=== PATIENT | male | born 1995 ===

== ENCOUNTER 2018-07-04 00:21 | Inpatient (IN) | payer BC ==
[2018-07-04 00:22] VITALS: BMI 24.3
--- NOTE | 2018-07-04 01:11 | ED PDOC ---
Arrival/HPI - General Chief Complaint: High Blood Sugar Time Seen by Provider: 07/04/18 00:37 Historian: Patient - Critical Care Critical Care Minutes: 30 minutes - History of Present Illness Narrative History of Present Illness (Text): 07/04/18 01:05 23 year old male, with a past medical history of diabetes (recently diagnosed 3 weeks prior in [place]), who presents to the emergency department complaining of DKA. Patient reports he was started on metformin, which he sates he stopped using. He reports he was not feeling well earlier today and went to satellite emergency room in [place], where he was diagnosed with DKA and started on Iv insulin drip. Patient requested to be transferred to [facility]. I spoke with the ER doctor, Dr. Lutz, who arranged for the transfer. Patient states he is currently feeling better. Time/Duration: 24 hours Symptom Onset: Gradual Symptom Course: Unchanged Activities at Onset: Light Context: Home Past Medical History - Provider Review Nursing Documentation Reviewed: Yes - Cardiac Hx Cardiac Disorders: No - Pulmonary Hx Respiratory Disorders: No - Neurological Hx Neurological Disorder: No - HEENT Hx HEENT Disorder: No - Renal Hx Renal Disorder: No - Endocrine/Metabolic Hx Endocrine Disorders: Yes Hx Diabetes Mellitus Type 2: Yes (Dx 05/2018) - Hematological/Oncological Hx Blood Disorders: No - Integumentary Hx Dermatological Disorder: No - Musculoskeletal/Rheumatological Hx Musculoskeletal Disorders: No - Gastrointestinal Hx Gastrointestinal Disorders: No - Genitourinary/Gynecological Hx Genitourinary Disorders: No - Psychiatric Hx Psychophysiologic Disorder: No Hx Anxiety: No Hx Substance Use: No - Anesthesia Hx Anesthesia: No Family/Social History - Physician Review Nursing Documentation Reviewed: Yes Family/Social History: Unknown Family HX Smoking Status: Never Smoked Hx Alcohol Use: No Hx Substance Use: No Allergies/Home Meds Allergies/Adverse Reactions: Allergies No Known Allergies Allergy (Unverified 07/04/18 00:40) Review of Systems - Physician Review All systems were reviewed & negative as marked: Yes - Review of Systems Respiratory: absent: SOB Cardiovascular: absent: Chest Pain Neurological: absent: Headache Physical Exam Vital Signs Reviewed: Yes Appearance: Positive for: Well-Appearing, Non-Toxic, Comfortable Pain Distress: None Mental Status: Positive for: Alert and Oriented X 3 - Systems Exam Head: Present: Atraumatic, Normocephalic Pupils: Present: PERRL Extroacular Muscles: Present: EOMI Conjunctiva: Present: Normal Mouth: Present: Moist Mucous Membranes Neck: Present: Normal Range of Motion Respiratory/Chest: Present: Clear to Auscultation, Good Air Exchange. No: Respiratory Distress, Accessory Muscle Use Cardiovascular: Present: Regular Rate and Rhythm, Normal S1, S2. No: Murmurs Abdomen: No: Tenderness, Distention, Peritoneal Signs Back: Present: Normal Inspection Upper Extremity: Present: Normal Inspection. No: Cyanosis, Edema Lower Extremity: Present: Normal Inspection. No: Edema Neurological: Present: GCS=15, CN II-XII Intact, Speech Normal Skin: Present: Warm, Dry, Normal Color. No: Rashes Psychiatric: Present: Alert, Oriented x 3, Normal Insight, Normal Concentration Medical Decision Making ED Course and Treatment: 07/04/18 01:02 Impression: 23 year old male presents to the emergency department complaining of DKA. Differential Diagnosis included but are not limited to: Plan: -- EKG -- Labs -- Chest X-ray -- Reassess and disposition Prior Visits: Notes and results from previous visits were reviewed. Progress Notes: 07/04/18 01:47 CXR-No acute process EKG-NSR@ 94 NSST changes 07/04/18 02:24 Case was discussed with /Accepts to his service ICU/Case discussed with medical pathology teacher and transportation planner - RAD Interpretation Radiology Orders: 07/04/18 00:41 CHEST PORTABLE [RAD] Stat - Scribe Statement The provider has reviewed the documentation as recorded by the Loraineibarline Suggs All medical record entries made by the Scribarline were at my direction and person ally dictated by me. I have reviewed the chart and agree that the record accurately reflects my personal performance of the history, physical exam, medical decision making, and the department course for this patient. I have also personally directed, reviewed, and agree with the discharge instructions and disposition. Disposition/Present on Arrival - Present on Arrival Any Indicators Present on Arrival: No History of DVT/PE: No History of Uncontrolled Diabetes: No Urinary Catheter: No History of Decub. Ulcer: No History Surgical Site Infection Following: None - Disposition Have Diagnosis and Disposition been Completed?: Yes Diagnosis: DKA (diabetic ketoacidosis) Disposition: HOSPITALIZED Disposition Time: 02:24 Patient Plan: Admission Condition: STABLE
[2018-07-04 01:17] LABS: ALB/GLOB RATIO 1.3 (1.1-1.8); ALBUMIN 4.6 g/dL (3.0-4.8); ALT/SGPT 20 U/L (7-56); AST/SGOT 50 U/L (17-59); BLOOD UREA NITROGEN 13 mg/dL (7-21); CALCIUM 9.2 mg/dL (8.4-10.5); GFR NON-AFRICAN AMERICAN > 60
[2018-07-04 01:34] LABS: HEMOGLOBIN 13.8 g/dL (14.0-18.0); MEAN CELL VOLUME 85.4 fl (80.0-105.0); MEAN CORPUSCULAR HEMOGLOBIN 29.3 pg (25.0-35.0); MEAN CORPUSCULAR HGB CONC 34.3 g/dl (31.0-37.0); RBC 4.71 10^6/uL (3.5-6.1); RED CELL DISTRIBUTION WIDTH 13.4 % (11.5-14.5); WHITE BLOOD COUNT 7.9 10^3/uL (4.5-11.0)
[2018-07-04 02:04] LABS: VENOUS BLOOD GAS BASE EXCESS -7.9 mmol/L (0.0-2.0); VENOUS BLOOD GAS PO2 43 mm/Hg (30-55); VENOUS BLOOD PH 7.26 (7.32-7.43)
[2018-07-04] MEDS ORDERED: Insulin Regular 100 UNITS in Sodium Chloride 0.9% 99 ML IV PRN ×2 (02:22→02:28)
[2018-07-04] MEDS ORDERED: Dextrose 5%/0.45% NS 1,000 ML IV SCH ×2 (02:30→04:00)
--- NOTE | 2018-07-04 03:28 | CP.PCM.HP ---
History of Present Illness - History of Present Illness History of Present Illness: HISTORY & PHYSICAL NOTE FOR DR. MEENA Marc PGY1 23 y/o M with PMH DM2, HLD presents to [facility]ED after being sent from [facility] for DKA. Pt reports he went to [facility] satellite ED after he wasn't feeling well at home, had noticed polyuria and checked his blood glucose level which was in the 600s range. Pt reports he generally doesn't check his sugar, but used his fathers lancet/test strips to test sugar as he wasn't feeling well. At [facility] ED, he was started on Insulin drip and subsequently transferred to [facility] ED for admission. Upon interview, pt reports he has had polyuria, polydipsia and noted dry mouth recently. He otherwise reports that he "feels completely fine." He denies any recent infections, illnesses, trauma, intoxication. He is denying the rest of the ROS. PMH: DM2, HLD All: NKDA PSH: Denies SH: denies tobacco, ETOH, illicit drug use FH: Mother: alive healthy. Father: DM1, HTN, HLD Hosp: [facility] ED 06/04/18, transferred to [facility] for admission Meds: Prescribed metformin 1000mg bid(noncompliant) PMD: None Present on Admission - Present on Admission Any Indicators Present on Admission: No Review of Systems - Review of Systems Review of Systems: per HPI Past Patient History - Past Social History Smoking Status: Never Smoked - CARDIAC Hx Cardiac Disorders: No - PULMONARY Hx Respiratory Disorders: No - NEUROLOGICAL Hx Neurological Disorder: No - HEENT Hx HEENT Problems: No - RENAL Hx Chronic Kidney Disease: No - ENDOCRINE/METABOLIC Hx Endocrine Disorders: Yes Hx Diabetes Mellitus Type 2: Yes (Dx 05/2018) - HEMATOLOGICAL/ONCOLOGICAL Hx Blood Disorders: No - INTEGUMENTARY Hx Dermatological Problems: No - MUSCULOSKELETAL/RHEUMATOLOGICAL Hx Musculoskeletal Disorders: No - GASTROINTESTINAL Hx Gastrointestinal Disorders: No - GENITOURINARY/GYNECOLOGICAL Hx Genitourinary Disorders: No - PSYCHIATRIC Hx Psychophysiologic Disorder: No Hx Anxiety: No Hx Substance Use: No - SURGICAL HISTORY Hx Surgeries: No - ANESTHESIA Hx Anesthesia: No Meds Allergies/Adverse Reactions: Allergies Allergy/AdvReac Type Severity Reaction Status Date / Time No Known Allergies Allergy Unverified 07/04/18 00:40 Physical Exam - Constitutional Appears: Well, Non-toxic, No Acute Distress - Head Exam Head Exam: NORMAL INSPECTION, NORMOCEPHALIC - Eye Exam Eye Exam: EOMI, Normal appearance - ENT Exam ENT Exam: Mucous Membranes Dry - Neck Exam Neck exam: Positive for: Normal Inspection - Respiratory Exam Respiratory Exam: Clear to Auscultation Bilateral, NORMAL BREATHING PATTERN - Cardiovascular Exam Cardiovascular Exam: REGULAR RHYTHM, +S1, +S2 - GI/Abdominal Exam GI & Abdominal Exam: Normal Bowel Sounds, Soft - Extremities Exam Extremities exam: Positive for: normal inspection. Negative for: calf tenderness - Back Exam Back exam: NORMAL INSPECTION - Neurological Exam Neurological exam: Alert, Oriented x3 - Psychiatric Exam Psychiatric exam: Normal Affect, Normal Mood - Skin Skin Exam: Dry, Intact, Warm Results - Vital Signs Recent Vital Signs: Last Vital Signs Temp 97.9 F 07/04/18 01:30 Pulse 90 07/04/18 02:55 Resp 16 07/04/18 02:55 BP 126/64 07/04/18 02:55 Pulse Ox 97 07/04/18 02:55 - Labs Result Diagrams: 07/04/18 01:05 07/04/18 01:00 Labs: Laboratory Results - last 24 hr 07/04/18 07/04/18 07/04/18 00:25 01:00 01:05 WBC 7.9 RBC 4.71 Hgb 13.8 L Hct 40.2 L MCV 85.4 MCH 29.3 MCHC 34.3 RDW 13.4 Plt Count 142 MPV 13.0 H pO2 VBG pH VBG pCO2 VBG HCO3 VBG Total CO2 VBG O2 Sat (Calc) VBG Base Excess VBG Potassium Glucose Lactate FiO2 Sodium 140 Potassium 4.1 Chloride 106 Carbon Dioxide 16 L Anion Gap 22 H BUN 13 Creatinine 0.6 L Est GFR ( Amer) > 60 Est GFR (Non-Af Amer) > 60 POC Glucose (mg/dL) 114 H Random Glucose 131 H Calcium 9.2 Total Bilirubin 0.8 AST 50 ALT 20 Alkaline Phosphatase 149 H Total Protein 8.0 Albumin 4.6 Globulin 3.5 Albumin/Globulin Ratio 1.3 Venous Blood Potassium 07/04/18 01:10 WBC RBC Hgb Hct MCV MCH MCHC RDW Plt Count MPV pO2 43 VBG pH 7.26 L VBG pCO2 42.0 VBG HCO3 18.8 L VBG Total CO2 20.1 L VBG O2 Sat (Calc) 75.3 H VBG Base Excess -7.9 L VBG Potassium 3.7 Glucose 139 H Lactate 0.9 FiO2 21.0 Sodium 137.0 Potassium Chloride 104.0 Carbon Dioxide Anion Gap BUN Creatinine Est GFR ( Amer) Est GFR (Non-Af Amer) POC Glucose (mg/dL) Random Glucose Calcium Total Bilirubin AST ALT Alkaline Phosphatase Total Protein Albumin Globulin Albumin/Globulin Ratio Venous Blood Potassium 3.7 Assessment & Plan - Assessment and Plan (Free Text) Assessment: 23 y/o M with PMH of DM2 noncompliant with medications & HLD presents to [facility] after being sent from [facility] ED for DKA. Pt noted BS in 600s before presenting to [facility]. Pt was started on insulin drip at [facility] ED and transferred for admission. Plan: DKA Likely in the setting of non-compliance to home metformin. No acute precipitants noted Pt started on insulin drip prior to arrival to [facility] Upon presentation A, HCO3 16. VBG pH: 7.26. BS 196, K: 4.1 Monitor BMP Q4H, Continue insulin drip until AG <12 Bolus IVF (D5/0.45NS) @14 ml/kg/h with 40 mEQ K supplementation Transition to SubQ insulin once AG closes, allow 2-3h overlap Endocrinology consulted, Dr. Galvez f/u TSH/FT4, lipid panel, Hgb A1c, U/A, UDS [facility] UOP Monitor in ICU Hx of HLD f/u lipid panel DVT/GI PPX: SCD/Protonix Case reviewed with attending physician, Dr. Meena Marc PGY1
[2018-07-04] MEDS ORDERED: Potassium Chloride 40 MEQ in Dextrose 5%/0.45% NS 1,000 ML IV SCH (04:00)
[2018-07-04 04:04] LABS: BASO # 0.02 K/mm3 (0.0-2.0); BASO % 0.3 % (0.0-3.0); EOS # 0.1 (0.0-0.7); EOS % 1.1 % (1.5-5.0); HEMOGLOBIN 13.2 g/dL (14.0-18.0); LYMPH # 2.6 (1.2-3.4); MEAN CELL VOLUME 85.6 fl (80.0-105.0); MEAN CORPUSCULAR HEMOGLOBIN 28.9 pg (25.0-35.0); MEAN CORPUSCULAR HGB CONC 33.8 g/dl (31.0-37.0); MEAN PLATELET VOLUME 12.6 fl (7.0-11.0); MONO # 1.1 (0.1-0.6); MONO % 14.3 % (1.0-6.0); RBC 4.57 10^6/uL (3.5-6.1); RED CELL DISTRIBUTION WIDTH 13.5 % (11.5-14.5); WHITE BLOOD COUNT 7.3 10^3/uL (4.5-11.0)
--- NOTE | 2018-07-04 04:11 | CP.PCM.CON ---
<Shelli Marc - Last Filed: 07/04/18 04:14> History of Present Illness - History of Present Illness History of Present Illness: ICU CONSULT NOTE- Dr. Jessika Marc PGY1 23 y/o M with PMH DM2, HLD presents to [facility] after being sent from [facility] for DKA. Pt reports he went to [facility] satellite ED after he wasn't feeling well at home, had noticed polyuria and checked his blood glucose level which was in the 600s range. Pt reports he generally doesn't check his sugar, but used his fathers lancet/test strips to test sugar as he wasn't feeling well. At [facility] ED, he was started on Insulin drip and subsequently transferred to [facility] ED for admission. Upon interview, pt reports he has had polyuria, polydipsia and noted dry mouth recently. He otherwise reports that he "feels completely fine." He denies any recent infections, illnesses, trauma, intoxication. He is denying the rest of the ROS. PMH: DM2, HLD All: NKDA PSH: Denies SH: denies tobacco, ETOH, illicit drug use FH: Mother: alive healthy. Father: DM1, HTN, HLD Hosp: [facility] ED 06/04/18, transferred to [facility] for admission Meds: Prescribed metformin 1000mg bid(noncompliant) PMD: None Review of Systems - Review of Systems Review of Systems: per HPI Past Patient History - Past Social History Smoking Status: Never Smoked - CARDIAC Hx Cardiac Disorders: No - PULMONARY Hx Respiratory Disorders: No - NEUROLOGICAL Hx Neurological Disorder: No - HEENT Hx HEENT Problems: No - RENAL Hx Chronic Kidney Disease: No - ENDOCRINE/METABOLIC Hx Endocrine Disorders: Yes Hx Diabetes Mellitus Type 2: Yes (Dx 05/2018) - HEMATOLOGICAL/ONCOLOGICAL Hx Blood Disorders: No - INTEGUMENTARY Hx Dermatological Problems: No - MUSCULOSKELETAL/RHEUMATOLOGICAL Hx Musculoskeletal Disorders: No - GASTROINTESTINAL Hx Gastrointestinal Disorders: No - GENITOURINARY/GYNECOLOGICAL Hx Genitourinary Disorders: No - PSYCHIATRIC Hx Psychophysiologic Disorder: No Hx Anxiety: No Hx Substance Use: No - SURGICAL HISTORY Hx Surgeries: No - ANESTHESIA Hx Anesthesia: No Meds Allergies/Adverse Reactions: Allergies Allergy/AdvReac Type Severity Reaction Status Date / Time No Known Allergies Allergy Unverified 07/04/18 00:40 - Medications Medications: Current Medications Dextrose/Sodium Chloride (Dextrose 5%/0.45% Ns 1000 Ml) 1,000 mls @ 100 mls/hr IV .Q10H MARTÍN Last Admin: 07/04/18 02:25 Dose: 100 mls/hr Insulin Human Regular 100 (units/ Sodium Chloride) 100 mls @ 2 mls/hr IV .Q24H PRN; Protocol PRN Reason: TITRATE PER MD ORDER Last Admin: 07/04/18 02:46 Dose: 1 unit/h, 1 mls/hr Potassium Chloride 40 meq/ (Dextrose/Sodium Chloride) 1,020 mls @ 999 mls/hr IV .Q1H2M MARTÍN Stop: 07/04/18 05:01 Pantoprazole Sodium (Protonix Inj) 40 mg IVP DAILY [facility] Physical Exam - Constitutional Appears: Well, Non-toxic, No Acute Distress - Head Exam Head Exam: NORMAL INSPECTION, NORMOCEPHALIC - Eye Exam Eye Exam: EOMI, Normal appearance - ENT Exam ENT Exam: Mucous Membranes Dry - Neck Exam Neck exam: Positive for: Normal Inspection - Respiratory Exam Respiratory Exam: Clear to Auscultation Bilateral, NORMAL BREATHING PATTERN - Cardiovascular Exam Cardiovascular Exam: REGULAR RHYTHM, +S1, +S2 - GI/Abdominal Exam GI & Abdominal Exam: Normal Bowel Sounds, Soft - Extremities Exam Extremities exam: Positive for: normal inspection. Negative for: calf tenderness - Back Exam Back exam: NORMAL INSPECTION - Neurological Exam Neurological exam: Alert, Oriented x3 - Psychiatric Exam Psychiatric exam: Normal Affect, Normal Mood - Skin Skin Exam: Dry, Intact, Warm Results - Vital Signs Recent Vital Signs: Last Vital Signs Temp 97.9 F 07/04/18 01:30 Pulse 90 07/04/18 02:55 Resp 16 07/04/18 02:55 BP 126/64 07/04/18 02:55 Pulse Ox 97 07/04/18 02:55 - Labs Result Diagrams: 07/04/18 01:05 07/04/18 01:00 Labs: Laboratory Results - last 24 hr 07/04/18 07/04/18 07/04/18 00:25 01:00 01:05 WBC 7.9 RBC 4.71 Hgb 13.8 L Hct 40.2 L MCV 85.4 MCH 29.3 MCHC 34.3 RDW 13.4 Plt Count 142 MPV 13.0 H pO2 VBG pH VBG pCO2 VBG HCO3 VBG Total CO2 VBG O2 Sat (Calc) VBG Base Excess VBG Potassium Glucose Lactate FiO2 Sodium 140 Potassium 4.1 Chloride 106 Carbon Dioxide 16 L Anion Gap 22 H BUN 13 Creatinine 0.6 L Est GFR ( Amer) > 60 Est GFR (Non-Af Amer) > 60 POC Glucose (mg/dL) 114 H Random Glucose 131 H Calcium 9.2 Total Bilirubin 0.8 AST 50 ALT 20 Alkaline Phosphatase 149 H Total Protein 8.0 Albumin 4.6 Globulin 3.5 Albumin/Globulin Ratio 1.3 Venous Blood Potassium 07/04/18 07/04/18 01:10 03:50 WBC RBC Hgb Hct MCV MCH MCHC RDW Plt Count MPV pO2 43 VBG pH 7.26 L VBG pCO2 42.0 VBG HCO3 18.8 L VBG Total CO2 20.1 L VBG O2 Sat (Calc) 75.3 H VBG Base Excess -7.9 L VBG Potassium 3.7 Glucose 139 H Lactate 0.9 FiO2 21.0 Sodium 137.0 Potassium Chloride 104.0 Carbon Dioxide Anion Gap BUN Creatinine Est GFR ( Amer) Est GFR (Non-Af Amer) POC Glucose (mg/dL) 196 H Random Glucose Calcium Total Bilirubin AST ALT Alkaline Phosphatase Total Protein Albumin Globulin Albumin/Globulin Ratio Venous Blood Potassium 3.7 Assessment & Plan - Assessment and Plan (Free Text) Assessment: 23 y/o M with PMH of DM2 noncompliant with medications & HLD presents to [facility] after being sent from [facility] ED for DKA. Pt noted BS in 600s before presenting to [facility]. Pt was started on insulin drip at [facility] ED and transferred for admission. Plan: DKA Likely in the setting of non-compliance to home metformin. No acute precipitants noted Pt started on insulin drip prior to arrival to [facility] Upon presentation A, HCO3 16. VBG pH: 7.26. BS 196, K: 4.1 Monitor BMP Q4H, Continue insulin drip until AG <12 Bolus IVF (D5/0.45NS) @14 ml/kg/h with 40 mEQ K supplementation Transition to SubQ insulin once AG closes, allow 2-3h overlap Endocrinology consulted, Dr. Cam f/u TSH/FT4, lipid panel, Hgb A1c, U/A, UDS [facility] UOP Monitor in ICU Hx of HLD f/u lipid panel DVT/GI PPX: SCD/Protonix Case reviewed with attending physician, Dr. Meena Marc PGY1 <Deepa Rosen - Last Filed: 07/04/18 08:52> Meds - Medications Medications: Current Medications Acetaminophen (Tylenol 325mg Tab) 650 mg PO Q6 PRN PRN Reason: TEMP>=99.5F Acetaminophen (Tylenol 650 Mg Supp) 650 mg RC Q6H PRN PRN Reason: TEMP>=99.5F Atorvastatin Calcium (Lipitor) 40 mg PO DIN MARTÍN Dextrose (Dextrose 50% Inj) 0 ml IV STAT PRN; Protocol PRN Reason: Hypoglycemia Protocol Heparin Sodium (Porcine) (Heparin) 5,000 units SC Q8 MARTÍN; Protocol Last Admin: 07/04/18 06:04 Dose: 5,000 units Dextrose (Dextrose 5% In Water 1000 Ml) 1,000 mls @ 0 mls/hr IV .Q0M PRN; P rotocol PRN Reason: Hypoglycemia Protocol Insulin Detemir (Levemir) 12 unit SC HS [facility] Insulin Human Lispro (Humalog) 6 units SC ACTID [facility] Last Admin: 07/04/18 08:34 Dose: 6 units Ondansetron HCl (Zofran Inj) 4 mg IVP Q4H PRN PRN Reason: Nausea/Vomiting Pantoprazole Sodium (Protonix Ec Tab) 40 mg PO 0600 [facility] Last Admin: 07/04/18 06:01 Dose: 40 mg Results - Vital Signs Recent Vital Signs: Last Vital Signs Temp 97.9 F 07/04/18 01:30 Pulse 90 07/04/18 02:55 Resp 16 07/04/18 03:34 BP 126/64 07/04/18 02:55 Pulse Ox 97 07/04/18 02:55 - Labs Result Diagrams: 07/04/18 03:48 07/04/18 03:48 Labs: Laboratory Results - last 24 hr 07/04/18 07/04/18 07/04/18 00:25 01:00 01:05 WBC 7.9 RBC 4.71 Hgb 13.8 L Hct 40.2 L MCV 85.4 MCH 29.3 MCHC 34.3 RDW 13.4 Plt Count 142 MPV 13.0 H Neut % (Auto) Lymph % (Auto) [place] % (Auto) Eos % (Auto) Baso % (Auto) Lymph # (Auto) [place] # (Auto) Eos # (Auto) Baso # (Auto) Absolute Neuts (auto) pO2 VBG pH VBG pCO2 VBG HCO3 VBG Total CO2 VBG O2 Sat (Calc) VBG Base Excess VBG Potassium Glucose Lactate FiO2 Sodium 140 Potassium 4.1 Chloride 106 Carbon Dioxide 16 L Anion Gap 22 H BUN 13 Creatinine 0.6 L Est GFR ( Amer) > 60 Est GFR (Non-Af Amer) > 60 POC Glucose (mg/dL) 114 H Random Glucose 131 H Calcium 9.2 Total Bilirubin 0.8 AST 50 ALT 20 Alkaline Phosphatase 149 H Total Protein 8.0 Albumin 4.6 Globulin 3.5 Albumin/Globulin Ratio 1.3 Triglycerides Cholesterol LDL Cholesterol Direct HDL Cholesterol Lipase Free T4 Thyroxine (T4) TSH 3rd Generation Venous Blood Potassium 07/04/18 07/04/18 07/04/18 01:10 02:05 03:48 WBC 7.3 RBC 4.57 Hgb 13.2 L Hct 39.1 L MCV 85.6 MCH 28.9 MCHC 33.8 RDW 13.5 Plt Count 125 MPV 12.6 H Neut % (Auto) 49.3 L Lymph % (Auto) 35.0 [place] % (Auto) 14.3 H Eos % (Auto) 1.1 L Baso % (Auto) 0.3 Lymph # (Auto) 2.6 [place] # (Auto) 1.1 H Eos # (Auto) 0.1 Baso # (Auto) 0.02 Absolute Neuts (auto) 3.62 pO2 43 VBG pH 7.26 L VBG pCO2 42.0 VBG HCO3 18.8 L VBG Total CO2 20.1 L VBG O2 Sat (Calc) 75.3 H VBG Base Excess -7.9 L VBG Potassium 3.7 Glucose 139 H Lactate 0.9 FiO2 21.0 Sodium 137.0 Potassium Chloride 104.0 Carbon Dioxide Anion Gap BUN Creatinine Est GFR ( Amer) Est GFR (Non-Af Amer) POC Glucose (mg/dL) 152 H Random Glucose Calcium Total Bilirubin AST ALT Alkaline Phosphatase Total Protein Albumin Globulin Albumin/Globulin Ratio Triglycerides Cholesterol LDL Cholesterol Direct HDL Cholesterol Lipase Free T4 Thyroxine (T4) TSH 3rd Generation Venous Blood Potassium 3.7 07/04/18 07/04/18 07/04/18 03:48 03:48 03:48 WBC RBC Hgb Hct MCV MCH MCHC RDW Plt Count MPV Neut % (Auto) Lymph % (Auto) [place] % (Auto) Eos % (Auto) Baso % (Auto) Lymph # (Auto) [place] # (Auto) Eos # (Auto) Baso # (Auto) Absolute Neuts (auto) pO2 VBG pH VBG pCO2 VBG HCO3 VBG Total CO2 VBG O2 Sat (Calc) VBG Base Excess VBG Potassium Glucose Lactate FiO2 Sodium 139 Potassium 4.3 Chloride 103 Carbon Dioxide 18 L Anion Gap 22 H BUN 12 Creatinine 0.8 Est GFR ( Amer) > 60 Est GFR (Non-Af Amer) > 60 POC Glucose (mg/dL) Random Glucose 198 H Calcium 9.3 Total Bilirubin 0.5 AST 49 ALT 20 Alkaline Phosphatase 139 H Total Protein 7.2 Albumin 4.2 Globulin 3.0 Albumin/Globulin Ratio 1.4 Triglycerides 159 Cholesterol 226 H LDL Cholesterol Direct 164 H HDL Cholesterol 26 L Lipase 53 Free T4 1.02 Thyroxine (T4) 5.8 TSH 3rd Generation 1.60 Venous Blood Potassium 07/04/18 07/04/18 03:50 06:14 WBC RBC Hgb Hct MCV MCH MCHC RDW Plt Count MPV Neut % (Auto) Lymph % (Auto) [place] % (Auto) Eos % (Auto) Baso % (Auto) Lymph # (Auto) [place] # (Auto) Eos # (Auto) Baso # (Auto) Absolute Neuts (auto) pO2 VBG pH VBG pCO2 VBG HCO3 VBG Total CO2 VBG O2 Sat (Calc) VBG Base Excess VBG Potassium Glucose Lactate FiO2 Sodium Potassium Chloride Carbon Dioxide Anion Gap BUN Creatinine Est GFR ( Amer) Est GFR (Non-Af Amer) POC Glucose (mg/dL) 196 H 164 H Random Glucose Calcium Total Bilirubin AST ALT Alkaline Phosphatase Total Protein Albumin Globulin Albumin/Globulin Ratio Triglycerides Cholesterol LDL Cholesterol Direct HDL Cholesterol Lipase Free T4 Thyroxine (T4) TSH 3rd Generation Venous Blood Potassium Attending/Attestation - Attestation I have personally seen and examined this patient.: Yes I have fully participated in the care of the patient.: Yes I have reviewed all pertinent clinical information: Yes Notes (Text): 07/04/18 08:51 Patient was seen when he was in ICU-01. Medical record was reviewed. Agree with history, physical examination, assessment and plan. CCT spent 30 minutes.
[2018-07-04 04:15] LABS: ALB/GLOB RATIO 1.4 (1.1-1.8); ALBUMIN 4.2 g/dL (3.0-4.8); ALT/SGPT 20 U/L (7-56); AST/SGOT 49 U/L (17-59); BLOOD UREA NITROGEN 12 mg/dL (7-21); CALCIUM 9.3 mg/dL (8.4-10.5); GFR NON-AFRICAN AMERICAN > 60; HDL CHOLESTEROL 26 mg/dL (29-60); LIPASE 53 U/L (23-300)
[2018-07-04 04:25] LABS: LDL CHOLESTEROL 164 mg/dL (0-129)
[2018-07-04 04:33] LABS: FREE T4 1.02 ng/dL (0.78-2.19)
[2018-07-04] MEDS ORDERED: Sodium Chloride 0.9% 1,000 ML IV STA (04:52)
[2018-07-04] MEDS ORDERED: Dextrose 50% SYRINGE Inj (50 ml) IV PRN (05:06)
[2018-07-04] MEDS: Pantoprazole 40 mg EC Tab PO SCH (06:01)
[2018-07-04] MEDS ORDERED: Insulin Detemir 100 units/ml Vial (Levemir) SC ONE (08:08)
[2018-07-04] MEDS ORDERED: Insulin Lispro 1 UNITS/0.01 ML SC SCH (08:15)
[2018-07-04] MEDS: Insulin Lispro 1 UNITS/0.01 ML SC SCH ×3 (08:34→17:12)
--- NOTE | 2018-07-04 08:54 | CARD ---
APPROVED REPORT Date of service: 07/04/2018 EKG Measurement Heart [id number] <Conclusion> Normal sinus rhythm Nonspecific ST and T wave abnormality Abnormal ECG
--- NOTE | 2018-07-04 09:02 | RAD ---
Date of service: 07/04/2018 HISTORY: Diabetic ketoacidosis. COMPARISON: No prior. FINDINGS: LUNGS: No active pulmonary disease. PLEURA: No significant pleural effusion identified, no pneumothorax apparent. CARDIOVASCULAR: No atherosclerotic calcification present Normal. OSSEOUS STRUCTURES: No significant abnormalities. VISUALIZED UPPER ABDOMEN: Normal. OTHER FINDINGS: None. IMPRESSION: No active disease.
[2018-07-04 10:17] LABS: BLOOD UREA NITROGEN 11 mg/dL (7-21); CALCIUM 8.9 mg/dL (8.4-10.5); GFR NON-AFRICAN AMERICAN > 60
[2018-07-04] MEDS ORDERED: Insulin Lispro (humaLOG) MEDIUM Coverage SC SCH (11:30)
[2018-07-04] MEDS ORDERED: Ergocalciferol 50,000 Intl Units Cap PO SCH (13:00)
[2018-07-04 13:59] LABS: BLOOD UREA NITROGEN 10 mg/dL (7-21); CALCIUM 8.8 mg/dL (8.4-10.5); GFR NON-AFRICAN AMERICAN > 60
--- NOTE | 2018-07-04 15:16 | CP.CCUPN ---
<Santosh Delaney R - Last Filed: 07/04/18 15:05> CCU Subjective - Physician Review Subjective (Free Text): 07/04/18 15:05 Patient denies discomfort or pain. He tolerated his breakfast well. He denies lightheadedness, dizziness, headache, abd pain, nausea, vomiting. His friend was in the room and the patient seemed to be in good spirits. CCU Objective - Vital Signs / Intake & Output Intake and Output (Last 8hrs): Intake & Output 07/04/18 07/04/18 07/04/18 06:59 14:59 22:59 Intake Total 31 Balance 31 Weight 146 lb Intake: IV 31 - Physical Exam Head: Positive for: Atraumatic, Normocephalic Pupils: Positive for: PERRL Extroacular Muscles: Positive for: EOMI Conjunctiva: Positive for: Normal Mouth: Positive for: Moist Mucous Membranes Neck: Positive for: Normal Range of Motion Respiratory/Chest: Positive for: Clear to Auscultation, Good Air Exchange. Negative for: Respiratory Distress, Accessory Muscle Use Cardiovascular: Positive for: Regular Rate and Rhythm, Normal S1, S2. Negative for: Murmurs Abdomen: Negative for: Tenderness, Distention, Peritoneal Signs Back: Positive for: Normal Inspection Upper Extremity: Positive for: Normal Inspection. Negative for: Cyanosis, Edema Lower Extremity: Positive for: Normal Inspection. Negative for: Edema Neurological: Positive for: GCS=15, CN II-XII Intact, Speech Normal Skin: Positive for: Warm, Dry, Normal Color. Negative for: Rashes Psychiatric: Positive for: Alert, Oriented x 3, Normal Insight, Normal Concentration - Medications Active Medications: Active Medications Generic Name Dose Route Start Last Admin Trade Name Freq PRN Reason Stop Dose Admin Acetaminophen 650 mg 07/04/18 04:53 Tylenol 325mg Tab PO Q6 PRN TEMP>=99.5F Acetaminophen 650 mg 07/04/18 04:53 Tylenol 650 Mg Supp RC Q6H PRN TEMP>=99.5F Atorvastatin Calcium 40 mg 07/04/18 17:00 Lipitor PO DIN MARTÍN Dextrose 0 ml 07/04/18 05:06 Dextrose 50% Inj IV STAT PRN Hypoglycemia Protocol Protocol Ergocalciferol 1 cap 07/04/18 13:00 Drisdol 50,000 Intl Units Cap PO Q7D MART[facility]N Heparin Sodium (Porcine) 5,000 units 07/04/18 06:00 07/04/18 06:04 Heparin SC 5,000 units Q8 MART[facility]N Administration Protocol Dextrose 1,000 mls @ 0 mls/hr 07/04/18 05:06 Dextrose 5% In Water 1000 Ml IV .Q0M PRN Hypoglycemia Protocol Protocol Per Protocol Sodium Chloride 1,000 mls @ 100 mls/hr 07/04/18 10:00 Sodium Chloride 0.9% IV .Q10H MART[facility]N Potassium Chloride 20 meq in 100 mls @ 50 mls/hr 07/04/18 13:00 Potassium Chloride 20 Meq/100 Ml IVPB 07/04/18 16:59 Q2H MART[facility]N Insulin Detemir 12 unit 07/04/18 22:00 Levemir SC HS [facility]N Insulin Human Lispro 6 units 07/04/18 08:15 07/04/18 12:23 Humalog SC 6 units ACTID MART[facility]N Administration Insulin Human Lispro 0 units 07/04/18 16:30 Humalog Low SC ACHS [facility] Protocol Ondansetron HCl 4 mg 07/04/18 04:53 Zofran Inj IVP Q4H PRN Nausea/Vomiting Pantoprazole Sodium 40 mg 07/04/18 06:00 07/04/18 06:01 Protonix Ec Tab PO 40 mg 0600 [facility] Administration - Patient Studies Lab Studies: Lab Studies 07/04/18 07/04/18 07/04/18 Range/Units 13:35 09:20 06:14 WBC (4.5-11.0) 10^3/uL RBC (3.5-6.1) 10^6/uL Hgb (14.0-18.0) g/dL Hct (42.0-52.0) % MCV (80.0-105.0) fl MCH (25.0-35.0) pg MCHC (31.0-37.0) g/dl RDW (11.5-14.5) % Plt Count (120.0-450.0) 10^3/uL MPV (7.0-11.0) fl Neut % (Auto) (50.0-68.0) % Lymph % (Auto) (22.0-35.0) % Webb % (Auto) (1.0-6.0) % Eos % (Auto) (1.5-5.0) % Baso % (Auto) (0.0-3.0) % Lymph # (Auto) (1.2-3.4) Webb # (Auto) (0.1-0.6) Eos # (Auto) (0.0-0.7) Baso # (Auto) (0.0-2.0) K/mm3 Absolute Neuts (auto) (1.4-6.5) pO2 (30-55) mm/Hg VBG pH (7.32-7.43) VBG pCO2 (40-60) VBG HCO3 (21-28) mmol/l VBG Total CO2 (22-28) mmol.L VBG O2 Sat (Calc) (40-65) % VBG Base Excess (0.0-2.0) mmol/L VBG Potassium (3.6-5.2) mmol/L Glucose (75-110) mg/dl Lactate (0.7-2.1) mmol/L FiO2 % Sodium 137 138 (132-148) mmol/L Potassium 3.5 L 3.2 L (3.6-5.0) mmol/L Chloride 105 105 (98-107) mmol/L Carbon Dioxide 20 L 20 L (21-33) mmol/L Anion Gap 16 16 (10-20) BUN 10 11 (7-21) mg/dL Creatinine 0.6 L 0.8 (0.8-1.5) mg/dl Est GFR ( Amer) > 60 > 60 Est GFR (Non-Af Amer) > 60 > 60 POC Glucose (mg/dL) 164 H (65-110) mg/dL Random Glucose 285 H 186 H (70-110) mg/dL Hemoglobin A1c (4.2-6.5) % Calcium 8.8 8.9 (8.4-10.5) mg/dL Total Bilirubin (0.2-1.3) mg/dL AST (17-59) U/L ALT (7-56) U/L Alkaline Phosphatase (38-126) U/L Total Protein (5.8-8.3) g/dL Albumin (3.0-4.8) g/dL Globulin gm/dL Albumin/Globulin Ratio (1.1-1.8) Triglycerides (35-160) mg/dL Cholesterol (130-200) mg/dL LDL Cholesterol Direct (0-129) mg/dL HDL Cholesterol (29-60) mg/dL Lipase (23-300) U/L 25-OH Vitamin D Total (30.0-100.0) NG/ML Free T4 (0.78-2.19) ng/dL Thyroxine (T4) (5.5-11.0) ug/dL TSH 3rd Generation (0.46-4.68) mIU/mL Venous Blood Potassium (3.6-5.2) mmol/L 07/04/18 07/04/18 07/04/18 Range/Units 03:50 03:48 03:48 WBC (4.5-11.0) 10^3/uL RBC (3.5-6.1) 10^6/uL Hgb (14.0-18.0) g/dL Hct (42.0-52.0) % MCV (80.0-105.0) fl MCH (25.0-35.0) pg MCHC (31.0-37.0) g/dl RDW (11.5-14.5) % Plt Count (120.0-450.0) 10^3/uL MPV (7.0-11.0) fl Neut % (Auto) (50.0-68.0) % Lymph % (Auto) (22.0-35.0) % Webb % (Auto) (1.0-6.0) % Eos % (Auto) (1.5-5.0) % Baso % (Auto) (0.0-3.0) % Lymph # (Auto) (1.2-3.4) Webb # (Auto) (0.1-0.6) Eos # (Auto) (0.0-0.7) Baso # (Auto) (0.0-2.0) K/mm3 Absolute Neuts (auto) (1.4-6.5) pO2 (30-55) mm/Hg VBG pH (7.32-7.43) VBG pCO2 (40-60) VBG HCO3 (21-28) mmol/l VBG Total CO2 (22-28) mmol.L VBG O2 Sat (Calc) (40-65) % VBG Base Excess (0.0-2.0) mmol/L VBG Potassium (3.6-5.2) mmol/L Glucose (75-110) mg/dl Lactate (0.7-2.1) mmol/L FiO2 % Sodium (132-148) mmol/L Potassium (3.6-5.0) mmol/L Chloride (98-107) mmol/L Carbon Dioxide (21-33) mmol/L Anion Gap (10-20) BUN (7-21) mg/dL Creatinine (0.8-1.5) mg/dl Est GFR ( Amer) Est GFR (Non-Af Amer) POC Glucose (mg/dL) 196 H (65-110) mg/dL Random Glucose (70-110) mg/dL Hemoglobin A1c (4.2-6.5) % Calcium (8.4-10.5) mg/dL Total Bilirubin (0.2-1.3) mg/dL AST (17-59) U/L ALT (7-56) U/L Alkaline Phosphatase (38-126) U/L Total Protein (5.8-8.3) g/dL Albumin (3.0-4.8) g/dL Globulin gm/dL Albumin/Globulin Ratio (1.1-1.8) Triglycerides (35-160) mg/dL Cholesterol (130-200) mg/dL LDL Cholesterol Direct (0-129) mg/dL HDL Cholesterol (29-60) mg/dL Lipase (23-300) U/L 25-OH Vitamin D Total < 12.8 L (30.0-100.0) NG/ML Free T4 (0.78-2.19) ng/dL Thyroxine (T4) 5.8 (5.5-11.0) ug/dL TSH 3rd Generation (0.46-4.68) mIU/mL Venous Blood Potassium (3.6-5.2) mmol/L 07/04/18 07/04/18 07/04/18 Range/Units 03:48 03:48 03:48 WBC (4.5-11.0) 10^3/uL RBC (3.5-6.1) 10^6/uL Hgb (14.0-18.0) g/dL Hct (42.0-52.0) % MCV (80.0-105.0) fl MCH (25.0-35.0) pg MCHC (31.0-37.0) g/dl RDW (11.5-14.5) % Plt Count (120.0-450.0) 10^3/uL MPV (7.0-11.0) fl Neut % (Auto) (50.0-68.0) % Lymph % (Auto) (22.0-35.0) % Webb % (Auto) (1.0-6.0) % Eos % (Auto) (1.5-5.0) % Baso % (Auto) (0.0-3.0) % Lymph # (Auto) (1.2-3.4) Webb # (Auto) (0.1-0.6) Eos # (Auto) (0.0-0.7) Baso # (Auto) (0.0-2.0) K/mm3 Absolute Neuts (auto) (1.4-6.5) pO2 (30-55) mm/Hg VBG pH (7.32-7.43) VBG pCO2 (40-60) VBG HCO3 (21-28) mmol/l VBG Total CO2 (22-28) mmol.L VBG O2 Sat (Calc) (40-65) % VBG Base Excess (0.0-2.0) mmol/L VBG Potassium (3.6-5.2) mmol/L Glucose (75-110) mg/dl Lactate (0.7-2.1) mmol/L FiO2 % Sodium 139 (132-148) mmol/L Potassium 4.3 (3.6-5.0) mmol/L Chloride 103 (98-107) mmol/L Carbon Dioxide 18 L (21-33) mmol/L Anion Gap 22 H (10-20) BUN 12 (7-21) mg/dL Creatinine 0.8 (0.8-1.5) mg/dl Est GFR ( Amer) > 60 Est GFR (Non-Af Amer) > 60 POC Glucose (mg/dL) (65-110) mg/dL Random Glucose 198 H (70-110) mg/dL Hemoglobin A1c 12.7 H (4.2-6.5) % Calcium 9.3 (8.4-10.5) mg/dL Total Bilirubin 0.5 (0.2-1.3) mg/dL AST 49 (17-59) U/L ALT 20 (7-56) U/L Alkaline Phosphatase 139 H (38-126) U/L Total Protein 7.2 (5.8-8.3) g/dL Albumin 4.2 (3.0-4.8) g/dL Globulin 3.0 gm/dL Albumin/Globulin Ratio 1.4 (1.1-1.8) Triglycerides 159 (35-160) mg/dL Cholesterol 226 H (130-200) mg/dL LDL Cholesterol Direct 164 H (0-129) mg/dL HDL Cholesterol 26 L (29-60) mg/dL Lipase 53 (23-300) U/L 25-OH Vitamin D Total (30.0-100.0) NG/ML Free T4 1.02 (0.78-2.19) ng/dL Thyroxine (T4) (5.5-11.0) ug/dL TSH 3rd Generation 1.60 (0.46-4.68) mIU/mL Venous Blood Potassium (3.6-5.2) mmol/L 07/04/18 07/04/18 07/04/18 Range/Units 03:48 02:05 01:10 WBC 7.3 (4.5-11.0) 10^3/uL RBC 4.57 (3.5-6.1) 10^6/uL Hgb 13.2 L (14.0-18.0) g/dL Hct 39.1 L (42.0-52.0) % MCV 85.6 (80.0-105.0) fl MCH 28.9 (25.0-35.0) pg MCHC 33.8 (31.0-37.0) g/dl RDW 13.5 (11.5-14.5) % Plt Count 125 (120.0-450.0) 10^3/uL MPV 12.6 H (7.0-11.0) fl Neut % (Auto) 49.3 L (50.0-68.0) % Lymph % (Auto) 35.0 (22.0-35.0) % Webb % (Auto) 14.3 H (1.0-6.0) % Eos % (Auto) 1.1 L (1.5-5.0) % Baso % (Auto) 0.3 (0.0-3.0) % Lymph # (Auto) 2.6 (1.2-3.4) Webb # (Auto) 1.1 H (0.1-0.6) Eos # (Auto) 0.1 (0.0-0.7) Baso # (Auto) 0.02 (0.0-2.0) K/mm3 Absolute Neuts (auto) 3.62 (1.4-6.5) pO2 43 (30-55) mm/Hg VBG pH 7.26 L (7.32-7.43) VBG pCO2 42.0 (40-60) VBG HCO3 18.8 L (21-28) mmol/l VBG Total CO2 20.1 L (22-28) mmol.L VBG O2 Sat (Calc) 75.3 H (40-65) % VBG Base Excess -7.9 L (0.0-2.0) mmol/L VBG Potassium 3.7 (3.6-5.2) mmol/L Glucose 139 H (75-110) mg/dl Lactate 0.9 (0.7-2.1) mmol/L FiO2 21.0 % Sodium 137.0 (132-148) mmol/L Potassium (3.6-5.0) mmol/L Chloride 104.0 (98-107) mmol/L Carbon Dioxide (21-33) mmol/L Anion Gap (10-20) BUN (7-21) mg/dL Creatinine (0.8-1.5) mg/dl Est GFR ( Amer) Est GFR (Non-Af Amer) POC Glucose (mg/dL) 152 H (65-110) mg/dL Random Glucose (70-110) mg/dL Hemoglobin A1c (4.2-6.5) % Calcium (8.4-10.5) mg/dL Total Bilirubin (0.2-1.3) mg/dL AST (17-59) U/L ALT (7-56) U/L Alkaline Phosphatase (38-126) U/L Total Protein (5.8-8.3) g/dL Albumin (3.0-4.8) g/dL Globulin gm/dL Albumin/Globulin Ratio (1.1-1.8) Triglycerides (35-160) mg/dL Cholesterol (130-200) mg/dL LDL Cholesterol Direct (0-129) mg/dL HDL Cholesterol (29-60) mg/dL Lipase (23-300) U/L 25-OH Vitamin D Total (30.0-100.0) NG/ML Free T4 (0.78-2.19) ng/dL Thyroxine (T4) (5.5-11.0) ug/dL TSH 3rd Generation (0.46-4.68) mIU/mL Venous Blood Potassium 3.7 (3.6-5.2) mmol/L 07/04/18 07/04/18 07/04/18 Range/Units 01:05 01:00 00:25 WBC 7.9 (4.5-11.0) 10^3/uL RBC 4.71 (3.5-6.1) 10^6/uL Hgb 13.8 L (14.0-18.0) g/dL Hct 40.2 L (42.0-52.0) % MCV 85.4 (80.0-105.0) fl MCH 29.3 (25.0-35.0) pg MCHC 34.3 (31.0-37.0) g/dl RDW 13.4 (11.5-14.5) % Plt Count 142 (120.0-450.0) 10^3/uL MPV 13.0 H (7.0-11.0) fl Neut % (Auto) (50.0-68.0) % Lymph % (Auto) (22.0-35.0) % Webb % (Auto) (1.0-6.0) % Eos % (Auto) (1.5-5.0) % Baso % (Auto) (0.0-3.0) % Lymph # (Auto) (1.2-3.4) Webb # (Auto) (0.1-0.6) Eos # (Auto) (0.0-0.7) Baso # (Auto) (0.0-2.0) K/mm3 Absolute Neuts (auto) (1.4-6.5) pO2 (30-55) mm/Hg VBG pH (7.32-7.43) VBG pCO2 (40-60) VBG HCO3 (21-28) mmol/l VBG Total CO2 (22-28) mmol.L VBG O2 Sat (Calc) (40-65) % VBG Base Excess (0.0-2.0) mmol/L VBG Potassium (3.6-5.2) mmol/L Glucose (75-110) mg/dl Lactate (0.7-2.1) mmol/L FiO2 % Sodium 140 (132-148) mmol/L Potassium 4.1 (3.6-5.0) mmol/L Chloride 106 (98-107) mmol/L Carbon Dioxide 16 L (21-33) mmol/L Anion Gap 22 H (10-20) BUN 13 (7-21) mg/dL Creatinine 0.6 L (0.8-1.5) mg/dl Est GFR ( Amer) > 60 Est GFR (Non-Af Amer) > 60 POC Glucose (mg/dL) 114 H (65-110) mg/dL Random Glucose 131 H (70-110) mg/dL Hemoglobin A1c (4.2-6.5) % Calcium 9.2 (8.4-10.5) mg/dL Total Bilirubin 0.8 (0.2-1.3) mg/dL AST 50 (17-59) U/L ALT 20 (7-56) U/L Alkaline Phosphatase 149 H (38-126) U/L Total Protein 8.0 (5.8-8.3) g/dL Albumin 4.6 (3.0-4.8) g/dL Globulin 3.5 gm/dL Albumin/Globulin Ratio 1.3 (1.1-1.8) Triglycerides (35-160) mg/dL Cholesterol (130-200) mg/dL LDL Cholesterol Direct (0-129) mg/dL HDL Cholesterol (29-60) mg/dL Lipase (23-300) U/L 25-OH Vitamin D Total (30.0-100.0) NG/ML Free T4 (0.78-2.19) ng/dL Thyroxine (T4) (5.5-11.0) ug/dL TSH 3rd Generation (0.46-4.68) mIU/mL Venous Blood Potassium (3.6-5.2) mmol/L Laboratory Results - last 24 hr 07/04/18 07/04/1807/04/19 00:25 01:00 01:05 WBC 7.9 RBC 4.71 Hgb 13.8 L Hct 40.2 L MCV 85.4 MCH 29.3 MCHC 34.3 RDW 13.4 Plt Count 142 MPV 13.0 H Neut % (Auto) Lymph % (Auto) Webb % (Auto) Eos % (Auto) Baso % (Auto) Lymph # (Auto) Webb # (Auto) Eos # (Auto) Baso # (Auto) Absolute Neuts (auto) pO2 VBG pH VBG pCO2 VBG HCO3 VBG Total CO2 VBG O2 Sat (Calc) VBG Base Excess VBG Potassium Glucose Lactate FiO2 Sodium 140 Potassium 4.1 Chloride 106 Carbon Dioxide 16 L Anion Gap 22 H BUN 13 Creatinine 0.6 L Est GFR ( Amer) > 60 Est GFR (Non-Af Amer) > 60 POC Glucose (mg/dL) 114 H Random Glucose 131 H Hemoglobin A1c Calcium 9.2 Total Bilirubin 0.8 AST 50 ALT 20 Alkaline Phosphatase 149 H Total Protein 8.0 Albumin 4.6 Globulin 3.5 Albumin/Globulin Ratio 1.3 Triglycerides Cholesterol LDL Cholesterol Direct HDL Cholesterol Lipase 25-OH Vitamin D Total Free T4 Thyroxine (T4) TSH 3rd Generation Venous Blood Potassium 07/04/18 07/04/18 07/04/18 01:10 02:05 03:48 WBC 7.3 RBC 4.57 Hgb 13.2 L Hct 39.1 L MCV 85.6 MCH 28.9 MCHC 33.8 RDW 13.5 Plt Count 125 MPV 12.6 H Neut % (Auto) 49.3 L Lymph % (Auto) 35.0 Webb % (Auto) 14.3 H Eos % (Auto) 1.1 L Baso % (Auto) 0.3 Lymph # (Auto) 2.6 Webb # (Auto) 1.1 H Eos # (Auto) 0.1 Baso # (Auto) 0.02 Absolute Neuts (auto) 3.62 pO2 43 VBG pH 7.26 L VBG pCO2 42.0 VBG HCO3 18.8 L VBG Total CO2 20.1 L VBG O2 Sat (Calc) 75.3 H VBG Base Excess -7.9 L VBG Potassium 3.7 Glucose 139 H Lactate 0.9 FiO2 21.0 Sodium 137.0 Potassium Chloride 104.0 Carbon Dioxide Anion Gap BUN Creatinine Est GFR ( Amer) Est GFR (Non-Af Amer) POC Glucose (mg/dL) 152 H Random Glucose Hemoglobin A1c Calcium Total Bilirubin AST ALT Alkaline Phosphatase Total Protein Albumin Globulin Albumin/Globulin Ratio Triglycerides Cholesterol LDL Cholesterol Direct HDL Cholesterol Lipase 25-OH Vitamin D Total Free T4 Thyroxine (T4) TSH 3rd Generation Venous Blood Potassium 3.7 07/04/18 07/04/18 07/04/18 03:48 03:48 03:48 WBC RBC Hgb Hct MCV MCH MCHC RDW Plt Count MPV Neut % (Auto) Lymph % (Auto) Webb % (Auto) Eos % (Auto) Baso % (Auto) Lymph # (Auto) Webb # (Auto) Eos # (Auto) Baso # (Auto) Absolute Neuts (auto) pO2 VBG pH VBG pCO2 VBG HCO3 VBG Total CO2 VBG O2 Sat (Calc) VBG Base Excess VBG Potassium Glucose Lactate FiO2 Sodium 139 Potassium 4.3 Chloride 103 Carbon Dioxide 18 L Anion Gap 22 H BUN 12 Creatinine 0.8 Est GFR ( Amer) > 60 Est GFR (Non-Af Amer) > 60 POC Glucose (mg/dL) Random Glucose 198 H Hemoglobin A1c 12.7 H Calcium 9.3 Total Bilirubin 0.5 AST 49 ALT 20 Alkaline Phosphatase 139 H Total Protein 7.2 Albumin 4.2 Globulin 3.0 Albumin/Globulin Ratio 1.4 Triglycerides 159 Cholesterol 226 H LDL Cholesterol Direct 164 H HDL Cholesterol 26 L Lipase 53 25-OH Vitamin D Total Free T4 1.02 Thyroxine (T4) TSH 3rd Generation 1.60 Venous Blood Potassium 07/04/18 07/04/18 07/04/18 03:48 03:48 03:50 WBC RBC Hgb Hct MCV MCH MCHC RDW Plt Count MPV Neut % (Auto) Lymph % (Auto) Webb % (Auto) Eos % (Auto) Baso % (Auto) Lymph # (Auto) Webb # (Auto) Eos # (Auto) Baso # (Auto) Absolute Neuts (auto) pO2 VBG pH VBG pCO2 VBG HCO3 VBG Total CO2 VBG O2 Sat (Calc) VBG Base Excess VBG Potassium Glucose Lactate FiO2 Sodium Potassium Chloride Carbon Dioxide Anion Gap BUN Creatinine Est GFR ( Amer) Est GFR (Non-Af Amer) POC Glucose (mg/dL) 196 H Random Glucose Hemoglobin A1c Calcium Total Bilirubin AST ALT Alkaline Phosphatase Total Protein Albumin Globulin Albumin/Globulin Ratio Triglycerides Cholesterol LDL Cholesterol Direct HDL Cholesterol Lipase 25-OH Vitamin D Total < 12.8 L Free T4 Thyroxine (T4) 5.8 TSH 3rd Generation Venous Blood Potassium 07/04/18 07/04/18 07/04/18 06:14 09:20 13:35 WBC RBC Hgb Hct MCV MCH MCHC RDW Plt Count MPV Neut % (Auto) Lymph % (Auto) Webb % (Auto) Eos % (Auto) Baso % (Auto) Lymph # (Auto) Webb # (Auto) Eos # (Auto) Baso # (Auto) Absolute Neuts (auto) pO2 VBG pH VBG pCO2 VBG HCO3 VBG Total CO2 VBG O2 Sat (Calc) VBG Base Excess VBG Potassium Glucose Lactate FiO2 Sodium 138 137 Potassium 3.2 L 3.5 L Chloride 105 105 Carbon Dioxide 20 L 20 L Anion Gap 16 16 BUN 11 10 Creatinine 0.8 0.6 L Est GFR ( Amer) > 60 > 60 Est GFR (Non-Af Amer) > 60 > 60 POC Glucose (mg/dL) 164 H Random Glucose 186 H 285 H Hemoglobin A1c Calcium 8.9 8.8 Total Bilirubin AST ALT Alkaline Phosphatase Total Protein Albumin Globulin Albumin/Globulin Ratio Triglycerides Cholesterol LDL Cholesterol Direct HDL Cholesterol Lipase 25-OH Vitamin D Total Free T4 Thyroxine (T4) TSH 3rd Generation Venous Blood Potassium Radiology Impressions: Radiology Impressions Chest X-Ray 07/04/18 00:41 IMPRESSION: No active disease. EKG/Cardiology Studies: Cardiology / EKG Studies 07/04/18 ELECTROCARDIOGRAM Stat Comment: Reason For Exam: dka Fingerstick Blood Sugar Results: 152 Review of Systems - Review of Systems All systems: reviewed and no additional remarkable complaints except (as stated in subjective portion) Critical Care Progress Note - Nutrition Nutrition: Nutrition Category Date Time Status Consistent Carbohydrate [DIET] Diets 07/04/18 Breakfast Ordered Assessment/Plan - Assessment and Plan (Free Text) Plan: 23 y/o M with PMH of DM2 noncompliant with medications & HLD presents to [facility] [place] after being sent from [facility] for DKA. Pt noted BS in 600s before presenting to [facility]. Pt was started on insulin drip at [facility] and transferred for admission: Endocrine #DKA Likely in the setting of non-compliance to home metformin. No acute precipitants noted Pt started on insulin drip prior to arrival to [facility] [place] Upon presentation A, HCO3 16. VBG pH: 7.26. BS 196, K: 4.1 Insulin drip now discontinued, was transitioned to SC once patient began to eat and gap closed Currently on levemir 12u sc hs and lispro 6u sc actid Continue to monitor gap with bmp q4h Endocrinology consulted, Dr. Galvez - put patient on low dose protocol HgbA1c is 12.7 #Low Vitamin D ergocalciferol 1 cap po q7d #Hypokalemia replete with potassium chloride ivpb q2h and confirm correction with bmp's Cardiovascular #HLD lipid panel ordered which shows LDL of 164 and cholesterol of 226 atorvastatin 40mg po din DVT/GI PPX: SCD/Protonix Seen and discussed with Dr Val Vergara <Val Vergara - Last Filed: 07/04/18 18:06> CCU Objective - Vital Signs / Intake & Output Intake and Output (Last 8hrs): Intake & Output 07/04/18 07/04/18 07/04/18 06:59 14:59 22:59 Intake Total 31 Balance 31 Weight 66.224 kg Intake: IV 31 - Medications Active Medications: Active Medications Generic Name Dose Route Start Last Admin Trade Name Freq PRN Reason Stop Dose Admin Acetaminophen 650 mg 07/04/18 04:53 Tylenol 325mg Tab PO Q6 PRN TEMP>=99.5F Acetaminophen 650 mg 07/04/18 04:53 Tylenol 650 Mg Supp RC Q6H PRN TEMP>=99.5F Atorvastatin Calcium 40 mg 07/04/18 17:00 07/04/18 17:13 Lipitor PO 40 mg DIN MARTÍN Administration Dextrose 0 ml 07/04/18 05:06 Dextrose 50% Inj IV STAT PRN Hypoglycemia Protocol Protocol Ergocalciferol 1 cap 07/04/18 13:00 07/04/18 15:56 Drisdol 50,000 Intl Units Cap PO 1 cap Q7D MARTÍN Administration Heparin Sodium (Porcine) 5,000 units 07/04/18 06:00 07/04/18 15:56 Heparin SC 5,000 units Q8 MARTÍN Administration Protocol Dextrose 1,000 mls @ 0 mls/hr 07/04/18 05:06 Dextrose 5% In Water 1000 Ml IV .Q0M PRN Hypoglycemia Protocol Protocol Per Protocol Sodium Chloride 1,000 mls @ 100 mls/hr 07/04/18 10:00 07/04/18 15:56 Sodium Chloride 0.9% IV 100 mls/hr .Q10H MARTÍN Administration Insulin Detemir 12 unit 07/04/18 22:00 Levemir SC HS MARTÍN Insulin Human Lispro 6 units 07/04/18 08:15 07/04/18 17:12 Humalog SC 6 units ACTID MARTÍN Administration Insulin Human Lispro 0 units 07/04/18 16:30 07/04/18 17:13 Humalog Low SC Not Given ACHS MARTÍN Protocol Ondansetron HCl 4 mg 07/04/18 04:53 Zofran Inj IVP Q4H PRN Nausea/Vomiting Pantoprazole Sodium 40 mg 07/04/18 06:00 07/04/18 06:01 Protonix Ec Tab PO 40 mg 0600 MARTÍN Administration - Patient Studies Lab Studies: Lab Studies 07/04/18 07/04/18 07/04/18 Range/Units 17:32 13:35 11:18 WBC (4.5-11.0) 10^3/uL RBC (3.5-6.1) 10^6/uL Hgb (14.0-18.0) g/dL Hct (42.0-52.0) % MCV (80.0-105.0) fl MCH (25.0-35.0) pg MCHC (31.0-37.0) g/dl RDW (11.5-14.5) % Plt Count (120.0-450.0) 10^3/uL MPV (7.0-11.0) fl Neut % (Auto) (50.0-68.0) % Lymph % (Auto) (22.0-35.0) % Webb % (Auto) (1.0-6.0) % Eos % (Auto) (1.5-5.0) % Baso % (Auto) (0.0-3.0) % Lymph # (Auto) (1.2-3.4) Webb # (Auto) (0.1-0.6) Eos # (Auto) (0.0-0.7) Baso # (Auto) (0.0-2.0) K/mm3 Absolute Neuts (auto) (1.4-6.5) pO2 (30-55) mm/Hg VBG pH (7.32-7.43) VBG pCO2 (40-60) VBG HCO3 (21-28) mmol/l VBG Total CO2 (22-28) mmol.L VBG O2 Sat (Calc) (40-65) % VBG Base Excess (0.0-2.0) mmol/L VBG Potassium (3.6-5.2) mmol/L Glucose (75-110) mg/dl Lactate (0.7-2.1) mmol/L FiO2 % Sodium 137 (132-148) mmol/L Potassium 3.5 L (3.6-5.0) mmol/L Chloride 105 (98-107) mmol/L Carbon Dioxide 20 L (21-33) mmol/L Anion Gap 16 (10-20) BUN 10 10 (7-21) mg/dL Creatinine 0.6 L 0.6 L (0.8-1.5) mg/dl Est GFR ( Amer) > 60 > 60 Est GFR (Non-Af Amer) > 60 > 60 POC Glucose (mg/dL) 269 H (65-110) mg/dL Random Glucose 187 H 285 H (70-110) mg/dL Hemoglobin A1c (4.2-6.5) % Calcium 9.1 8.8 (8.4-10.5) mg/dL Total Bilirubin (0.2-1.3) mg/dL AST (17-59) U/L ALT (7-56) U/L Alkaline Phosphatase (38-126) U/L Total Protein (5.8-8.3) g/dL Albumin (3.0-4.8) g/dL Globulin gm/dL Albumin/Globulin Ratio (1.1-1.8) Triglycerides (35-160) mg/dL Cholesterol (130-200) mg/dL LDL Cholesterol Direct (0-129) mg/dL HDL Cholesterol (29-60) mg/dL Lipase (23-300) U/L 25-OH Vitamin D Total (30.0-100.0) NG/ML Free T4 (0.78-2.19) ng/dL Thyroxine (T4) (5.5-11.0) ug/dL TSH 3rd Generation (0.46-4.68) mIU/mL Venous Blood Potassium (3.6-5.2) mmol/L 07/04/18 07/04/18 07/04/18 Range/Units 09:20 07:48 06:14 WBC (4.5-11.0) 10^3/uL RBC (3.5-6.1) 10^6/uL Hgb (14.0-18.0) g/dL Hct (42.0-52.0) % MCV (80.0-105.0) fl MCH (25.0-35.0) pg MCHC (31.0-37.0) g/dl RDW (11.5-14.5) % Plt Count (120.0-450.0) 10^3/uL MPV (7.0-11.0) fl Neut % (Auto) (50.0-68.0) % Lymph % (Auto) (22.0-35.0) % Webb % (Auto) (1.0-6.0) % Eos % (Auto) (1.5-5.0) % Baso % (Auto) (0.0-3.0) % Lymph # (Auto) (1.2-3.4) Webb # (Auto) (0.1-0.6) Eos # (Auto) (0.0-0.7) Baso # (Auto) (0.0-2.0) K/mm3 Absolute Neuts (auto) (1.4-6.5) pO2 (30-55) mm/Hg VBG pH (7.32-7.43) VBG pCO2 (40-60) VBG HCO3 (21-28) mmol/l VBG Total CO2 (22-28) mmol.L VBG O2 Sat (Calc) (40-65) % VBG Base Excess (0.0-2.0) mmol/L VBG Potassium (3.6-5.2) mmol/L Glucose (75-110) mg/dl Lactate (0.7-2.1) mmol/L FiO2 % Sodium 138 (132-148) mmol/L Potassium 3.2 L (3.6-5.0) mmol/L Chloride 105 (98-107) mmol/L Carbon Dioxide 20 L (21-33) mmol/L Anion Gap 16 (10-20) BUN 11 (7-21) mg/dL Creatinine 0.8 (0.8-1.5) mg/dl Est GFR ( Amer) > 60 Est GFR (Non-Af Amer) > 60 POC Glucose (mg/dL) 83 164 H (65-110) mg/dL Random Glucose 186 H (70-110) mg/dL Hemoglobin A1c (4.2-6.5) % Calcium 8.9 (8.4-10.5) mg/dL Total Bilirubin (0.2-1.3) mg/dL AST (17-59) U/L ALT (7-56) U/L Alkaline Phosphatase (38-126) U/L Total Protein (5.8-8.3) g/dL Albumin (3.0-4.8) g/dL Globulin gm/dL Albumin/Globulin Ratio (1.1-1.8) Triglycerides (35-160) mg/dL Cholesterol (130-200) mg/dL LDL Cholesterol Direct (0-129) mg/dL HDL Cholesterol (29-60) mg/dL Lipase (23-300) U/L 25-OH Vitamin D Total (30.0-100.0) NG/ML Free T4 (0.78-2.19) ng/dL Thyroxine (T4) (5.5-11.0) ug/dL TSH 3rd Generation (0.46-4.68) mIU/mL Venous Blood Potassium (3.6-5.2) mmol/L 07/04/18 07/04/18 07/04/18 Range/Units 03:50 03:48 03:48 WBC (4.5-11.0) 10^3/uL RBC (3.5-6.1) 10^6/uL Hgb (14.0-18.0) g/dL Hct (42.0-52.0) % MCV (80.0-105.0) fl MCH (25.0-35.0) pg MCHC (31.0-37.0) g/dl RDW (11.5-14.5) % Plt Count (120.0-450.0) 10^3/uL MPV (7.0-11.0) fl Neut % (Auto) (50.0-68.0) % Lymph % (Auto) (22.0-35.0) % Webb % (Auto) (1.0-6.0) % Eos % (Auto) (1.5-5.0) % Baso % (Auto) (0.0-3.0) % Lymph # (Auto) (1.2-3.4) Webb # (Auto) (0.1-0.6) Eos # (Auto) (0.0-0.7) Baso # (Auto) (0.0-2.0) K/mm3 Absolute Neuts (auto) (1.4-6.5) pO2 (30-55) mm/Hg VBG pH (7.32-7.43) VBG pCO2 (40-60) VBG HCO3 (21-28) mmol/l VBG Total CO2 (22-28) mmol.L VBG O2 Sat (Calc) (40-65) % VBG Base Excess (0.0-2.0) mmol/L VBG Potassium (3.6-5.2) mmol/L Glucose (75-110) mg/dl Lactate (0.7-2.1) mmol/L FiO2 % Sodium (132-148) mmol/L Potassium (3.6-5.0) mmol/L Chloride (98-107) mmol/L Carbon Dioxide (21-33) mmol/L Anion Gap (10-20) BUN (7-21) mg/dL Creatinine (0.8-1.5) mg/dl Est GFR ( Amer) Est GFR (Non-Af Amer) POC Glucose (mg/dL) 196 H (65-110) mg/dL Random Glucose (70-110) mg/dL Hemoglobin A1c (4.2-6.5) % Calcium (8.4-10.5) mg/dL Total Bilirubin (0.2-1.3) mg/dL AST (17-59) U/L ALT (7-56) U/L Alkaline Phosphatase (38-126) U/L Total Protein (5.8-8.3) g/dL Albumin (3.0-4.8) g/dL Globulin gm/dL Albumin/Globulin Ratio (1.1-1.8) Triglycerides (35-160) mg/dL Cholesterol (130-200) mg/dL LDL Cholesterol Direct (0-129) mg/dL HDL Cholesterol (29-60) mg/dL Lipase (23-300) U/L 25-OH Vitamin D Total < 12.8 L (30.0-100.0) NG/ML Free T4 (0.78-2.19) ng/dL Thyroxine (T4) 5.8 (5.5-11.0) ug/dL TSH 3rd Generation (0.46-4.68) mIU/mL Venous Blood Potassium (3.6-5.2) mmol/L 07/04/18 07/04/18 07/04/18 Range/Units 03:48 03:48 03:48 WBC (4.5-11.0) 10^3/uL RBC (3.5-6.1) 10^6/uL Hgb (14.0-18.0) g/dL Hct (42.0-52.0) % MCV (80.0-105.0) fl MCH (25.0-35.0) pg MCHC (31.0-37.0) g/dl RDW (11.5-14.5) % Plt Count (120.0-450.0) 10^3/uL MPV (7.0-11.0) fl Neut % (Auto) (50.0-68.0) % Lymph % (Auto) (22.0-35.0) % Webb % (Auto) (1.0-6.0) % Eos % (Auto) (1.5-5.0) % Baso % (Auto) (0.0-3.0) % Lymph # (Auto) (1.2-3.4) Webb # (Auto) (0.1-0.6) Eos # (Auto) (0.0-0.7) Baso # (Auto) (0.0-2.0) K/mm3 Absolute Neuts (auto) (1.4-6.5) pO2 (30-55) mm/Hg VBG pH (7.32-7.43) VBG pCO2 (40-60) VBG HCO3 (21-28) mmol/l VBG Total CO2 (22-28) mmol.L VBG O2 Sat (Calc) (40-65) % VBG Base Excess (0.0-2.0) mmol/L VBG Potassium (3.6-5.2) mmol/L Glucose (75-110) mg/dl Lactate (0.7-2.1) mmol/L FiO2 % Sodium 139 (132-148) mmol/L Potassium 4.3 (3.6-5.0) mmol/L Chloride 103 (98-107) mmol/L Carbon Dioxide 18 L (21-33) mmol/L Anion Gap 22 H (10-20) BUN 12 (7-21) mg/dL Creatinine 0.8 (0.8-1.5) mg/dl Est GFR ( Amer) > 60 Est GFR (Non-Af Amer) > 60 POC Glucose (mg/dL) (65-110) mg/dL Random Glucose 198 H (70-110) mg/dL Hemoglobin A1c 12.7 H (4.2-6.5) % Calcium 9.3 (8.4-10.5) mg/dL Total Bilirubin 0.5 (0.2-1.3) mg/dL AST 49 (17-59) U/L ALT 20 (7-56) U/L Alkaline Phosphatase 139 H (38-126) U/L Total Protein 7.2 (5.8-8.3) g/dL Albumin 4.2 (3.0-4.8) g/dL Globulin 3.0 gm/dL Albumin/Globulin Ratio 1.4 (1.1-1.8) Triglycerides 159 (35-160) mg/dL Cholesterol 226 H (130-200) mg/dL LDL Cholesterol Direct 164 H (0-129) mg/dL HDL Cholesterol 26 L (29-60) mg/dL Lipase 53 (23-300) U/L 25-OH Vitamin D Total (30.0-100.0) NG/ML Free T4 1.02 (0.78-2.19) ng/dL Thyroxine (T4) (5.5-11.0) ug/dL TSH 3rd Generation 1.60 (0.46-4.68) mIU/mL Venous Blood Potassium (3.6-5.2) mmol/L 07/04/18 07/04/18 07/04/18 Range/Units 03:48 02:05 01:10 WBC 7.3 (4.5-11.0) 10^3/uL RBC 4.57 (3.5-6.1) 10^6/uL Hgb 13.2 L (14.0-18.0) g/dL Hct 39.1 L (42.0-52.0) % MCV 85.6 (80.0-105.0) fl MCH 28.9 (25.0-35.0) pg MCHC 33.8 (31.0-37.0) g/dl RDW 13.5 (11.5-14.5) % Plt Count 125 (120.0-450.0) 10^3/uL MPV 12.6 H (7.0-11.0) fl Neut % (Auto) 49.3 L (50.0-68.0) % Lymph % (Auto) 35.0 (22.0-35.0) % Webb % (Auto) 14.3 H (1.0-6.0) % Eos % (Auto) 1.1 L (1.5-5.0) % Baso % (Auto) 0.3 (0.0-3.0) % Lymph # (Auto) 2.6 (1.2-3.4) Webb # (Auto) 1.1 H (0.1-0.6) Eos # (Auto) 0.1 (0.0-0.7) Baso # (Auto) 0.02 (0.0-2.0) K/mm3 Absolute Neuts (auto) 3.62 (1.4-6.5) pO2 43 (30-55) mm/Hg VBG pH 7.26 L (7.32-7.43) VBG pCO2 42.0 (40-60) VBG HCO3 18.8 L (21-28) mmol/l VBG Total CO2 20.1 L (22-28) mmol.L VBG O2 Sat (Calc) 75.3 H (40-65) % VBG Base Excess -7.9 L (0.0-2.0) mmol/L VBG Potassium 3.7 (3.6-5.2) mmol/L Glucose 139 H (75-110) mg/dl Lactate 0.9 (0.7-2.1) mmol/L FiO2 21.0 % Sodium 137.0 (132-148) mmol/L Potassium (3.6-5.0) mmol/L Chloride 104.0 (98-107) mmol/L Carbon Dioxide (21-33) mmol/L Anion Gap (10-20) BUN (7-21) mg/dL Creatinine (0.8-1.5) mg/dl Est GFR ( Amer) Est GFR (Non-Af Amer) POC Glucose (mg/dL) 152 H (65-110) mg/dL Random Glucose (70-110) mg/dL Hemoglobin A1c (4.2-6.5) % Calcium (8.4-10.5) mg/dL Total Bilirubin (0.2-1.3) mg/dL AST (17-59) U/L ALT (7-56) U/L Alkaline Phosphatase (38-126) U/L Total Protein (5.8-8.3) g/dL Albumin (3.0-4.8) g/dL Globulin gm/dL Albumin/Globulin Ratio (1.1-1.8) Triglycerides (35-160) mg/dL Cholesterol (130-200) mg/dL LDL Cholesterol Direct (0-129) mg/dL HDL Cholesterol (29-60) mg/dL Lipase (23-300) U/L 25-OH Vitamin D Total (30.0-100.0) NG/ML Free T4 (0.78-2.19) ng/dL Thyroxine (T4) (5.5-11.0) ug/dL TSH 3rd Generation (0.46-4.68) mIU/mL Venous Blood Potassium 3.7 (3.6-5.2) mmol/L 07/04/18 07/04/18 07/04/18 Range/Units 01:05 01:00 00:25 WBC 7.9 (4.5-11.0) 10^3/uL RBC 4.71 (3.5-6.1) 10^6/uL Hgb 13.8 L (14.0-18.0) g/dL Hct 40.2 L (42.0-52.0) % MCV 85.4 (80.0-105.0) fl MCH 29.3 (25.0-35.0) pg MCHC 34.3 (31.0-37.0) g/dl RDW 13.4 (11.5-14.5) % Plt Count 142 (120.0-450.0) 10^3/uL MPV 13.0 H (7.0-11.0) fl Neut % (Auto) (50.0-68.0) % Lymph % (Auto) (22.0-35.0) % Webb % (Auto) (1.0-6.0) % Eos % (Auto) (1.5-5.0) % Baso % (Auto) (0.0-3.0) % Lymph # (Auto) (1.2-3.4) Webb # (Auto) (0.1-0.6) Eos # (Auto) (0.0-0.7) Baso # (Auto) (0.0-2.0) K/mm3 Absolute Neuts (auto) (1.4-6.5) pO2 (30-55) mm/Hg VBG pH (7.32-7.43) VBG pCO2 (40-60) VBG HCO3 (21-28) mmol/l VBG Total CO2 (22-28) mmol.L VBG O2 Sat (Calc) (40-65) % VBG Base Excess (0.0-2.0) mmol/L VBG Potassium (3.6-5.2) mmol/L Glucose (75-110) mg/dl Lactate (0.7-2.1) mmol/L FiO2 % Sodium 140 (132-148) mmol/L Potassium 4.1 (3.6-5.0) mmol/L Chloride 106 (98-107) mmol/L Carbon Dioxide 16 L (21-33) mmol/L Anion Gap 22 H (10-20) BUN 13 (7-21) mg/dL Creatinine 0.6 L (0.8-1.5) mg/dl Est GFR ( Amer) > 60 Est GFR (Non-Af Amer) > 60 POC Glucose (mg/dL) 114 H (65-110) mg/dL Random Glucose 131 H (70-110) mg/dL Hemoglobin A1c (4.2-6.5) % Calcium 9.2 (8.4-10.5) mg/dL Total Bilirubin 0.8 (0.2-1.3) mg/dL AST 50 (17-59) U/L ALT 20 (7-56) U/L Alkaline Phosphatase 149 H (38-126) U/L Total Protein 8.0 (5.8-8.3) g/dL Albumin 4.6 (3.0-4.8) g/dL Globulin 3.5 gm/dL Albumin/Globulin Ratio 1.3 (1.1-1.8) Triglycerides (35-160) mg/dL Cholesterol (130-200) mg/dL LDL Cholesterol Direct (0-129) mg/dL HDL Cholesterol (29-60) mg/dL Lipase (23-300) U/L 25-OH Vitamin D Total (30.0-100.0) NG/ML Free T4 (0.78-2.19) ng/dL Thyroxine (T4) (5.5-11.0) ug/dL TSH 3rd Generation (0.46-4.68) mIU/mL Venous Blood Potassium (3.6-5.2) mmol/L Laboratory Results - last 24 hr 07/04/18 07/04/18 07/04/18 00:25 01:00 01:05 WBC 7.9 RBC 4.71 Hgb 13.8 L Hct 40.2 L MCV 85.4 MCH 29.3 MCHC 34.3 RDW 13.4 Plt Count 142 MPV 13.0 H Neut % (Auto) Lymph % (Auto) Webb % (Auto) Eos % (Auto) Baso % (Auto) Lymph # (Auto) Webb # (Auto) Eos # (Auto) Baso # (Auto) Absolute Neuts (auto) pO2 VBG pH VBG pCO2 VBG HCO3 VBG Total CO2 VBG O2 Sat (Calc) VBG Base Excess VBG Potassium Glucose Lactate FiO2 Sodium 140 Potassium 4.1 Chloride 106 Carbon Dioxide 16 L Anion Gap 22 H BUN 13 Creatinine 0.6 L Est GFR ( Amer) > 60 Est GFR (Non-Af Amer) > 60 POC Glucose (mg/dL) 114 H Random Glucose 131 H Hemoglobin A1c Calcium 9.2 Total Bilirubin 0.8 AST 50 ALT 20 Alkaline Phosphatase 149 H Total Protein 8.0 Albumin 4.6 Globulin 3.5 Albumin/Globulin Ratio 1.3 Triglycerides Cholesterol LDL Cholesterol Direct HDL Cholesterol Lipase 25-OH Vitamin D Total Free T4 Thyroxine (T4) TSH 3rd Generation Venous Blood Potassium 07/04/18 07/04/18 07/04/18 01:10 02:05 03:48 WBC 7.3 RBC 4.57 Hgb 13.2 L Hct 39.1 L MCV 85.6 MCH 28.9 MCHC 33.8 RDW 13.5 Plt Count 125 MPV 12.6 H Neut % (Auto) 49.3 L Lymph % (Auto) 35.0 Webb % (Auto) 14.3 H Eos % (Auto) 1.1 L Baso % (Auto) 0.3 Lymph # (Auto) 2.6 Webb # (Auto) 1.1 H Eos # (Auto) 0.1 Baso # (Auto) 0.02 Absolute Neuts (auto) 3.62 pO2 43 VBG pH 7.26 L VBG pCO2 42.0 VBG HCO3 18.8 L VBG Total CO2 20.1 L VBG O2 Sat (Calc) 75.3 H VBG Base Excess -7.9 L VBG Potassium 3.7 Glucose 139 H Lactate 0.9 FiO2 21.0 Sodium 137.0 Potassium Chloride 104.0 Carbon Dioxide Anion Gap BUN Creatinine Est GFR ( Amer) Est GFR (Non-Af Amer) POC Glucose (mg/dL) 152 H Random Glucose Hemoglobin A1c Calcium Total Bilirubin AST ALT Alkaline Phosphatase Total Protein Albumin Globulin Albumin/Globulin Ratio Triglycerides Cholesterol LDL Cholesterol Direct HDL Cholesterol Lipase 25-OH Vitamin D Total Free T4 Thyroxine (T4) TSH 3rd Generation Venous Blood Potassium 3.7 07/04/18 07/04/18 07/04/18 03:48 03:48 03:48 WBC RBC Hgb Hct MCV MCH MCHC RDW Plt Count MPV Neut % (Auto) Lymph % (Auto) Webb % (Auto) Eos % (Auto) Baso % (Auto) Lymph # (Auto) Webb # (Auto) Eos # (Auto) Baso # (Auto) Absolute Neuts (auto) pO2 VBG pH VBG pCO2 VBG HCO3 VBG Total CO2 VBG O2 Sat (Calc) VBG Base Excess VBG Potassium Glucose Lactate FiO2 Sodium 139 Potassium 4.3 Chloride 103 Carbon Dioxide 18 L Anion Gap 22 H BUN 12 Creatinine 0.8 Est GFR ( Amer) > 60 Est GFR (Non-Af Amer) > 60 POC Glucose (mg/dL) Random Glucose 198 H Hemoglobin A1c 12.7 H Calcium 9.3 Total Bilirubin 0.5 AST 49 ALT 20 Alkaline Phosphatase 139 H Total Protein 7.2 Albumin 4.2 Globulin 3.0 Albumin/Globulin Ratio 1.4 Triglycerides 159 Cholesterol 226 H LDL Cholesterol Direct 164 H HDL Cholesterol 26 L Lipase 53 25-OH Vitamin D Total Free T4 1.02 Thyroxine (T4) TSH 3rd Generation 1.60 Venous Blood Potassium 07/04/18 07/04/18 07/04/18 03:48 03:48 03:50 WBC RBC Hgb Hct MCV MCH MCHC RDW Plt Count MPV Neut % (Auto) Lymph % (Auto) Webb % (Auto) Eos % (Auto) Baso % (Auto) Lymph # (Auto) Webb # (Auto) Eos # (Auto) Baso # (Auto) Absolute Neuts (auto) pO2 VBG pH VBG pCO2 VBG HCO3 VBG Total CO2 VBG O2 Sat (Calc) VBG Base Excess VBG Potassium Glucose Lactate FiO2 Sodium Potassium Chloride Carbon Dioxide Anion Gap BUN Creatinine Est GFR ( Amer) Est GFR (Non-Af Amer) POC Glucose (mg/dL) 196 H Random Glucose Hemoglobin A1c Calcium Total Bilirubin AST ALT Alkaline Phosphatase Total Protein Albumin Globulin Albumin/Globulin Ratio Triglycerides Cholesterol LDL Cholesterol Direct HDL Cholesterol Lipase 25-OH Vitamin D Total < 12.8 L Free T4 Thyroxine (T4) 5.8 TSH 3rd Generation Venous Blood Potassium 07/04/18 07/04/18 07/04/18 06:14 07:48 09:20 WBC RBC Hgb Hct MCV MCH MCHC RDW Plt Count MPV Neut % (Auto) Lymph % (Auto) Webb % (Auto) Eos % (Auto) Baso % (Auto) Lymph # (Auto) Webb # (Auto) Eos # (Auto) Baso # (Auto) Absolute Neuts (auto) pO2 VBG pH VBG pCO2 VBG HCO3 VBG Total CO2 VBG O2 Sat (Calc) VBG Base Excess VBG Potassium Glucose Lactate FiO2 Sodium 138 Potassium 3.2 L Chloride 105 Carbon Dioxide 20 L Anion Gap 16 BUN 11 Creatinine 0.8 Est GFR ( Amer) > 60 Est GFR (Non-Af Amer) > 60 POC Glucose (mg/dL) 164 H 83 Random Glucose 186 H Hemoglobin A1c Calcium 8.9 Total Bilirubin AST ALT Alkaline Phosphatase Total Protein Albumin Globulin Albumin/Globulin Ratio Triglycerides Cholesterol LDL Cholesterol Direct HDL Cholesterol Lipase 25-OH Vitamin D Total Free T4 Thyroxine (T4) TSH 3rd Generation Venous Blood Potassium 07/04/18 07/04/18 07/04/18 11:18 13:35 17:32 WBC RBC Hgb Hct MCV MCH MCHC RDW Plt Count MPV Neut % (Auto) Lymph % (Auto) Webb % (Auto) Eos % (Auto) Baso % (Auto) Lymph # (Auto) Webb # (Auto) Eos # (Auto) Baso # (Auto) Absolute Neuts (auto) pO2 VBG pH VBG pCO2 VBG HCO3 VBG Total CO2 VBG O2 Sat (Calc) VBG Base Excess VBG Potassium Glucose Lactate FiO2 Sodium 137 Potassium 3.5 L Chloride 105 Carbon Dioxide 20 L Anion Gap 16 BUN 10 10 Creatinine 0.6 L 0.6 L Est GFR ( Amer) > 60 > 60 Est GFR (Non-Af Amer) > 60 > 60 POC Glucose (mg/dL) 269 H Random Glucose 285 H 187 H Hemoglobin A1c Calcium 8.8 9.1 Total Bilirubin AST ALT Alkaline Phosphatase Total Protein Albumin Globulin Albumin/Globulin Ratio Triglycerides Cholesterol LDL Cholesterol Direct HDL Cholesterol Lipase 25-OH Vitamin D Total Free T4 Thyroxine (T4) TSH 3rd Generation Venous Blood Potassium Radiology Impressions: Radiology Impressions Chest X-Ray 07/04/18 00:41 IMPRESSION: No active disease. EKG/Cardiology Studies: Cardiology / EKG Studies 07/04/18 ELECTROCARDIOGRAM Stat Comment: Reason For Exam: dka Critical Care Progress Note - Nutrition Nutrition: Nutrition Category Date Time Status Consistent Carbohydrate [DIET] Diets 07/04/18 Breakfast Ordered Addendum Addendum: 07/04/18 18:04 MICU Attending Addendum Patient seen and examined Case d/w housestaff on rounds agree with resident note above 23M with recent dx of DM admitted with DKA. Taken off insulin drip this morning ready to eat breakfast gap close blood sugar < 200 trnasition with sq insulin and 1/2 of his long acting dose give full long acting dose tonight f/u endo recs 66Kg so requires about 32 units total insulin for the day diabetic education f/u a1c rest of care per resident note above Val Vergara MD MICU Attending
[2018-07-04] MEDS: Sodium Chloride 0.9% 1,000 ML IV SCH (15:56)
[2018-07-04] MEDS: Insulin Lispro (humaLOG) LOW Coverage SC SCH ×2 (17:13→21:00)
[2018-07-04 17:46] LABS: BLOOD UREA NITROGEN 10 mg/dL (7-21); CALCIUM 9.1 mg/dL (8.4-10.5); GFR NON-AFRICAN AMERICAN > 60
[2018-07-04] MEDS ORDERED: Insulin Detemir 100 units/ml Vial (Levemir) SC SCH (22:00)
[2018-07-04 23:16] LABS: URINE BILIRUBIN SMALL (NEGATIVE); URINE BLOOD NEGATIVE (NEGATIVE); URINE GLUCOSE (UA) >=1000 mg/dL (NEGATIVE); URINE LEUKOCYTE ESTERASE NEGATIVE Leu/uL (NEGATIVE); URINE PROTEIN NEGATIVE mg/dL (<30 mg/dL); URINE UROBILINOGEN 0.2 E.U./dL (<1 E.U./dL)
[2018-07-04 23:18] LABS: URINE APPEARANCE CLEAR (CLEAR); URINE COLOR YELLOW (YELLOW)
[2018-07-05 02:58] LABS: BARBITURATES, UR NEGATIVE (NEGATIVE); BENZODIAZEPINES, UR NEGATIVE (NEGATIVE); OPIATES, UR NEGATIVE (NEGATIVE); PHENCYCLIDINE, UR NEGATIVE (NEGATIVE)
--- NOTE | 2018-07-05 03:18 | CON ---
DATE OF CONSULTATION: 07/04/2018 ENDOCRINOLOGY CONSULTATION ICU 128, room 1. HISTORY OF PRESENT ILLNESS: This is a 23-year-old male with known history of type 2 diabetes on metformin therapy taken erratically as noted and presenting here from the [facility] Emergency Room Department for further evaluation and management of diabetic ketoacidosis and dehydration. He admits to having had recent marked polyuria, nocturia, polydipsia with marked hyperglycemic accelerations, glucose levels over 600 mg/dL as noted. PAST MEDICAL HISTORY: As mentioned above. History of type 2 diabetes on metformin given as 1 g b.i.d., but has been noncompliant with intake of the medications as noted. FAMILY HISTORY: Strongly positive for diabetes, and his father has type 1 diabetes with hypertension and heart disease. SOCIAL HISTORY: The patient has supportive family. No known substance use. REVIEW OF SYSTEMS: Admits to episodic bouts of dizziness and lightheadedness, worse in the last few days prior to admission with generalized weakness and suboptimal energy level. Also admits to bifrontal headaches and visual blurring in the past week or so prior to admission. No chest pains or palpitations or PND. Oral intake has been variable with nausea and dyspepsia with marked polyuria, nocturia, and polydipsia as noted. His chemistries initially showed a BUN of 13, sodium 140, potassium 4.1, chloride 106, CO2 is 16, glucose is 131, and creatinine is 0.6. His hemoglobin A1c is 12.7%, which is quite elevated and indicative of suboptimal metabolic control of his diabetic condition even prior to this admission. ASSESSMENT: This is a 23-year-old male with recent uncontrolled type 2 insulin-requiring diabetes, presenting here with mild diabetic ketoacidosis and dehydration and is now being referred for diabetic evaluation and management. PLAN OF MANAGEMENT: We will concur with the more physiologic basal and bolus insulin drug combination was initiated with Levemir given as 12 units subcu at bedtime daily to start tonight. We will continue the Humalog given as 6 units t.i.d. before meals to start today as ordered. We will modify the coverage scale to obviate hypoglycemia and detailed orders have been given. We will continue the vigorous IV hydration as given, and also, we will determine with the recent dose modification whether the patient will be insulin-requiring versus insulin-dependent at this time. We will obtain serial chemistries and supplement accordingly as needed. We will also initiate diabetic education and dietary instructions to include insulin self-administration and home glucose monitoring thereof. We will follow this. Verona Galvez MD
[2018-07-05 04:23] LABS: BLOOD UREA NITROGEN 9 mg/dL (7-21); CALCIUM 9.2 mg/dL (8.4-10.5); GFR NON-AFRICAN AMERICAN > 60
[2018-07-05] MEDS: Sodium Chloride 0.9% 1,000 ML IV SCH ×2 (04:28→11:23)
[2018-07-05] MEDS: Pantoprazole 40 mg EC Tab PO SCH (05:10)
[2018-07-05 07:36] VITALS: RESP 18
[2018-07-05 07:40] LABS: BASO # 0.01 K/mm3 (0.0-2.0); BASO % 0.2 % (0.0-3.0); EOS # 0.1 (0.0-0.7); EOS % 1.7 % (1.5-5.0); HEMOGLOBIN 12.1 g/dL (14.0-18.0); LYMPH # 2.5 (1.2-3.4); MEAN CELL VOLUME 86.2 fl (80.0-105.0); MEAN CORPUSCULAR HEMOGLOBIN 28.7 pg (25.0-35.0); MEAN CORPUSCULAR HGB CONC 33.3 g/dl (31.0-37.0); MEAN PLATELET VOLUME 12.5 fl (7.0-11.0); MONO # 0.5 (0.1-0.6); MONO % 8.5 % (1.0-6.0); RBC 4.21 10^6/uL (3.5-6.1); RED CELL DISTRIBUTION WIDTH 13.8 % (11.5-14.5); WHITE BLOOD COUNT 5.3 10^3/uL (4.5-11.0)
[2018-07-05] MEDS: Insulin Lispro (humaLOG) LOW Coverage SC SCH ×2 (07:50→11:43)
[2018-07-05 08:00] LABS: ALB/GLOB RATIO 1.3 (1.1-1.8); ALBUMIN 3.5 g/dL (3.0-4.8); ALT/SGPT 23 U/L (7-56); AST/SGOT 46 U/L (17-59); BILIRUBIN,DIRECT 0.2 mg/dL (0.0-0.4); BLOOD UREA NITROGEN 7 mg/dL (7-21); GFR NON-AFRICAN AMERICAN > 60
[2018-07-05] MEDS: Insulin Lispro 1 UNITS/0.01 ML SC SCH ×2 (08:07→11:57)
--- NOTE | 2018-07-05 08:11 | HP ---
DATE OF EXAM: 07/04/2018 The patient was seen and examined, the patient's diagnostic data, lab data, imaging studies, EKG all reviewed. Please refer to the detailed history and physical examination by the certified ophthalmic medical technician for further details. IMPRESSION AND PLAN: 1. Acute diabetic ketoacidosis. 2. History of diabetes mellitus recently diagnosed, noncompliant with oral hypoglycemic. 3. History of snoring and possible obstructive sleep apnea. 4. Tachycardia. 5. Mild normocytic anemia. 6. Prerenal kidney injury. 7. Hypokalemia. 8. Uncontrolled diabetes mellitus with hemoglobin A1c of 12.7. 9. Hypercholesterolemia with elevated LDL and decreased HDL. 10. Hypovitaminosis D. 11. Increased anion gap metabolic acidosis. 12. Hypercholesteremia. 13. Elevated LDL. 14. Decreased HDL. 15. History of snoring, history of possible obstructive sleep apnea. 16. History of recently diagnosed diabetes mellitus, noncompliant with metformin. 17. Family history of diabetes mellitus. 18. Hyperlipidemia. 19. Noncompliant with oral hypoglycemic. Plan at this time, the patient is started on insulin drip. The patient was transferred from [facility] on [address] The patient will be continued on insulin drip until glycemic control was achieved. The patient has been ordered serial labs. Endocrinology consultation ordered. Diabetic education ordered. The patient is started on vitamin D 50,000 weekly, heparin 5000 subcutaneously every 8 hours for DVT prophylaxis. The patient is on heparin drip at present, Lipitor 40 mg daily, GI and DVT prophylaxis ordered, Tylenol p.r.n., and Zofran 4 mg IV every 4 hours p.r.n. ordered. The patient's case referred for rn diabetes educator, head of the bed at 30 degrees, fingerstick blood sugar monitoring, and GI and DVT prophylaxis ordered. The patient was advised strict compliance with medication and diet upon discharge. The patient was advised and explained all the consequences and risk of uncontrolled diabetes mellitus. The patient was advised outpatient close followup. The patient was advised outpatient Ophthalmology and Podiatry evaluation. At present, the patient will be continued on the above therapeutic intervention and the patient's further management will be dependent upon the patient's clinical condition, hemodynamic status, and as per the patient response to therapeutic intervention, as per the patient's diagnostic test results, and as per recommendation by all the physicians involved in the care of the patient. Dictated and electronically signed, not read. Sixto Robledo MD
[2018-07-05] MEDS ORDERED: Magnesium Sulfate 2 gm/50 ml 2 GM/50 ML BAG IVPB ONE ×2 (08:15→10:30)
[2018-07-05] MEDS ORDERED: Potassium Chloride 20 mEq ER Tab PO STA (08:16)
[2018-07-05 09:11] LABS: FRUCTOSAMINE 541 umol/L (190-270)
--- NOTE | 2018-07-05 13:23 | CP.PCM.DIS ---
Provider - Provider Date of Admission: 07/04/18 02:25 Attending physician: Sixto Robledo MD Primary care physician: NO PRIMARY CARE PROVIDER Consults: 07/04/18 03:32 Endocrinology Consult Routine Comment: Consulting Provider: Verona Galvez Consulting Physician: Verona Galvez Reason for Consult: DKA 07/04/18 05:00 Diabetic Education Referral DAILY Comment: DIABETIC EDUCATION Physician Instructions: DIABETIC EDUCATION Reason For Exam: [facility] DM 07/05/18 05:00 Diabetic Education Referral DAILY Comment: DIABETIC EDUCATION Physician Instructions: DIABETIC EDUCATION Reason For Exam: [facility] DM 07/06/18 05:00 Diabetic Education Referral DAILY Comment: DIABETIC EDUCATION Physician Instructions: DIABETIC EDUCATION Reason For Exam: [facility] DM 07/07/18 05:00 Diabetic Education Referral DAILY Comment: DIABETIC EDUCATION Physician Instructions: DIABETIC EDUCATION Reason For Exam: [facility] DM 07/08/18 05:00 Diabetic Education Referral DAILY Comment: DIABETIC EDUCATION Physician Instructions: DIABETIC EDUCATION Reason For Exam: [facility] DM 07/09/18 05:00 Diabetic Education Referral DAILY Comment: DIABETIC EDUCATION Physician Instructions: DIABETIC EDUCATION Reason For Exam: [facility] DM 07/10/18 05:00 Diabetic Education Referral DAILY Comment: DIABETIC EDUCATION Physician Instructions: DIABETIC EDUCATION Reason For Exam: [facility] DM 07/11/18 05:00 Diabetic Education Referral DAILY Comment: DIABETIC EDUCATION Physician Instructions: DIABETIC EDUCATION Reason For Exam: [facility] DM 07/12/18 05:00 Diabetic Education Referral DAILY Comment: DIABETIC EDUCATION Physician Instructions: DIABETIC EDUCATION Reason For Exam: [facility] DM 07/13/18 05:00 Diabetic Education Referral DAILY Comment: DIABETIC EDUCATION Physician Instructions: DIABETIC EDUCATION Reason For Exam: [facility] DM 07/14/18 05:00 Diabetic Education Referral DAILY Comment: DIABETIC EDUCATION Physician Instructions: DIABETIC EDUCATION Reason For Exam: [facility] DM Time Spent in preparation of Discharge (in minutes): 35 Hospital Course - Lab Results Lab Results: Most Recent Lab Values WBC 5.3 10^3/uL (4.5-11.0) D 07/05/18 07:00 RBC 4.21 10^6/uL (3.5-6.1) 07/05/18 07:00 Hgb 12.1 g/dL (14.0-18.0) L 07/05/18 07:00 Hct 36.3 % (42.0-52.0) L 07/05/18 07:00 MCV 86.2 fl (80.0-105.0) 05/08/19 07:00 MCH 28.7 pg (25.0-35.0) 07/05/18 07:00 MCHC 33.3 g/dl (31.0-37.0) 07/05/18 07:00 RDW 13.8 % (11.5-14.5) 07/05/18 07:00 Plt Count 114 10^3/uL (120.0-450.0) L 07/05/18 07:00 Manual Plt Count 135 K/mm3 (120-450) 07/05/18 07:00 MPV 12.5 fl (7.0-11.0) H 07/05/18 07:00 Neut % (Auto) 41.6 % (50.0-68.0) L 07/05/18 07:00 Lymph % (Auto) 48.0 % (22.0-35.0) H 07/05/18 07:00 Evangeline % (Auto) 8.5 % (1.0-6.0) H 07/05/18 07:00 Eos % (Auto) 1.7 % (1.5-5.0) 07/05/18 07:00 Baso % (Auto) 0.2 % (0.0-3.0) 07/05/18 07:00 Lymph # (Auto) 2.5 (1.2-3.4) 07/05/18 07:00 Evangeline # (Auto) 0.5 (0.1-0.6) 07/05/18 07:00 Eos # (Auto) 0.1 (0.0-0.7) 07/05/18 07:00 Baso # (Auto) 0.01 K/mm3 (0.0-2.0) 07/05/18 07:00 Absolute Neuts (auto) 2.19 (1.4-6.5) 07/05/18 07:00 pO2 43 mm/Hg (30-55) 07/04/18 01:10 VBG pH 7.26 (7.32-7.43) L 07/04/18 01:10 VBG pCO2 42.0 (40-60) 07/04/18 01:10 VBG HCO3 18.8 mmol/l (21-28) L 07/04/18 01:10 VBG Total CO2 20.1 mmol.L (22-28) L 07/04/18 01:10 VBG O2 Sat (Calc) 75.3 % (40-65) H 07/04/18 01:10 VBG Base Excess -7.9 mmol/L (0.0-2.0) L 07/04/18 01:10 VBG Potassium 3.7 mmol/L (3.6-5.2) 07/04/18 01:10 Sodium 137.0 mmol/L (132-148) 07/04/18 01:10 Chloride 104.0 mmol/L (98-107) 07/04/18 01:10 Glucose 139 mg/dl (75-110) H 07/04/18 01:10 Lactate 0.9 mmol/L (0.7-2.1) 07/04/18 01:10 FiO2 21.0 % 07/04/18 01:10 Sodium 138 mmol/L (132-148) 07/05/18 07:00 Potassium 3.5 mmol/L (3.6-5.0) L 07/05/18 07:00 Chloride 105 mmol/L (98-107) 07/05/18 07:00 Carbon Dioxide 20 mmol/L (21-33) L 07/05/18 07:00 Anion Gap 17 (10-20) 07/05/18 07:00 BUN 7 mg/dL (7-21) 07/05/18 07:00 Creatinine 0.6 mg/dl (0.8-1.5) L 07/05/18 07:00 Est GFR ( Amer) > 60 07/05/18 07:00 Est GFR (Non-Af Amer) > 60 07/05/18 07:00 POC Glucose (mg/dL) 246 mg/dL (65-110) H 07/05/18 11:39 Random Glucose 177 mg/dL (70-110) H 07/05/18 07:00 Hemoglobin A1c 12.7 % (4.2-6.5) H 07/04/18 03:48 Fructosamine 541 umol/L (190-270) H 07/04/18 03:48 Calcium 9.0 mg/dL (8.4-10.5) 07/05/18 07:00 Phosphorus 3.5 mg/dL (2.5-4.5) 07/05/18 07:00 Magnesium 1.6 mg/dL (1.7-2.2) L 07/05/18 07:00 Total Bilirubin 0.6 mg/dL (0.2-1.3) 07/05/18 07:00 Direct Bilirubin 0.2 mg/dL (0.0-0.4) 07/05/18 07:00 AST 46 U/L (17-59) 07/05/18 07:00 ALT 23 U/L (7-56) 07/05/18 07:00 Alkaline Phosphatase 112 U/L (38-126) 07/05/18 07:00 Total Protein 6.2 g/dL (5.8-8.3) 07/05/18 07:00 Albumin 3.5 g/dL (3.0-4.8) 07/05/18 07:00 Globulin 2.8 gm/dL 07/05/18 07:00 Albumin/Globulin Ratio 1.3 (1.1-1.8) 07/05/18 07:00 Triglycerides 159 mg/dL (35-160) 07/04/18 03:48 Cholesterol 226 mg/dL (130-200) H 07/04/18 03:48 LDL Cholesterol Direct 164 mg/dL (0-129) H 07/04/18 03:48 HDL Cholesterol 26 mg/dL (29-60) L 07/04/18 03:48 Lipase 53 U/L (23-300) 07/04/18 03:48 25-OH Vitamin D Total < 12.8 NG/ML (30.0-100.0) L 07/04/18 03:48 Free T4 1.02 ng/dL (0.78-2.19) 07/04/18 03:48 Thyroxine (T4) 5.8 ug/dL (5.5-11.0) 07/04/18 03:48 TSH 3rd Generation 1.60 mIU/mL (0.46-4.68) 07/04/18 03:48 Venous Blood Potassium 3.7 mmol/L (3.6-5.2) 07/04/18 01:10 Urine Color Yellow (YELLOW) 07/04/18 23:04 Urine Appearance Clear (CLEAR) 07/04/18 23:04 Urine pH 6.0 (4.7-8.0) 07/04/18 23:04 Ur Specific [place] 1.025 (1.005-1.035) 07/04/18 23:04 Urine Protein Negative mg/dL (<30 mg/dL) 07/04/18 23:04 Urine Glucose (UA) >=1000 mg/dL (NEGATIVE) 07/04/18 23:04 Urine Ketones >=80 mg/dL (NEGATIVE) 07/04/18 23:04 Urine Blood Negative (NEGATIVE) 07/04/18 23:04 Urine Nitrate Negative (NEGATIVE) 07/04/18 23:04 Urine Bilirubin Small (NEGATIVE) H 07/04/18 23:04 Urine Urobilinogen 0.2 E.U./dL (<1 E.U./dL) 07/04/18 23:04 Ur Leukocyte Esterase Negative David/uL (NEGATIVE) 07/04/18 23:04 Urine Microalbumin 6.5 mg/L (0.0-16.6) 07/04/18 22:43 Urine Opiates Screen Negative (NEGATIVE) 07/04/18 23:04 Urine Methadone Screen Negative (NEGATIVE) 07/04/18 23:04 Ur Barbiturates Screen Negative (NEGATIVE) 07/04/18 23:04 Ur Phencyclidine Scrn Negative (NEGATIVE) 07/04/18 23:04 Ur Amphetamines Screen Negative (NEGATIVE) 07/04/18 23:04 U Benzodiazepines Scrn Negative (NEGATIVE) 07/04/18 23:04 U Oth Cocaine Metabols Negative (NEGATIVE) 07/04/18 23:04 U Cannabinoids Screen Negative (NEGATIVE) 07/04/18 23:04 - Hospital Course Hospital Course: 23 year old with no known past medical history who presented to [facility] [place] a satellite ED for DKA. The patient had reported having polydipsia, polyuria, and general malaise in the last few weeks. He was treated in the ICU per DKA protocol. He was found to have a HgbA1c of 12.7 and elevated LDL and triglycerides. Endocrinology was consulted as was the educator senior clinical. There was no infection identified that may have triggered his DKA. He was discharged home with Vitamin D supplementation, a statin, Metformin, and strict guidelines to reduce his weight and observe a diet low in carbohydrates. He will be following up with Dr. Robledo within one week's time. Diabetic education was also provided throughout his hospital course. At the time of discharge, he was provdied with a glucometer and means to measure his blood sugar twice a day for one month's time. He was given the below written instructions, prescriptions, and recommendations. Discharge Exam - Head Exam Head Exam: NORMAL INSPECTION, NORMOCEPHALIC - Eye Exam Eye Exam: EOMI, Normal appearance - ENT Exam ENT Exam: Mucous Membranes Moist, Normal Oropharynx - Neck Exam Neck exam: Normal Inspection - Respiratory Exam Respiratory Exam: NORMAL BREATHING PATTERN. absent: Decreased Breath Sounds - Cardiovascular Exam Cardiovascular Exam: RRR, +S1, +S2 - GI/Abdominal Exam GI & Abdominal Exam: Normal Bowel Sounds - Extremities Exam Extremities exam: normal inspection - Back Exam Back exam: NORMAL INSPECTION. absent: CVA tenderness (L), CVA tenderness (R) - Neurological Exam Neurological exam: Alert, CN II-XII Intact, Oriented x3 - Psychiatric Exam Psychiatric exam: Normal Affect, Normal Mood - Skin Skin Exam: Dry, Intact, Normal Color, Warm Discharge Plan - Discharge Medications Prescriptions: Atorvastatin [Lipitor] 40 mg PO HS #14 tab Ergocalciferol [Drisdol] 50,000 iu PO Q7D #12 cap Metformin HCl [Glucophage] 1,000 mg PO BID #30 tablet - Follow Up Plan Condition: STABLE Disposition: HOME/ ROUTINE Instructions: Carbohydrate Counting Diet, Diabetic Ketoacidosis, Diabetic Meal Planning , How to Keep Track of Your Blood Sugar, Diabetic Ketoacidosis (DC), Diabetic Ketoacidosis (GEN) Additional Instructions: MAY DISCHARGE HOME FOLLOW UP WITHIN 1 WEEK DISCHARGE MEDS PER NEW SCRIPT-GIVE ALL SCRIPTS TO PATIENT UPON DISCHARGE. COPY OF DIET TO PATIENT UPON DISCHARGE FOLLOW UP OUTPATIENT PODIATRY OPTHALMOLOGY Referrals: Sixto Robledo MD [Staff Provider] - 1 Week (MAY DISCHARGE HOME FOLLOW UP WITHIN 1 WEEK DISCHARGE MEDS PER NEW SCRIPT-GIVE ALL SCRIPTS TO PATIENT UPON DISCHARGE. COPY OF DIET TO PATIENT UPON DISCHARGE FOLLOW UP OUTPATIENT PODIATRY OPTHALMOLOGY )
[2018-07-05 13:32] VITALS: BP 109/70; PULSE 76; TEMP 97.8; O2SAT 96
--- NOTE | 2018-07-05 21:29 | PN ---
DATE: 07/05/2018 ENDOCRINOLOGY FOLLOWUP NOTE LOCATION: In room 569. SUBJECTIVE: This is a 23-year-old male with recent uncontrolled type 2 insulin-requiring diabetes, presenting here with marked hyperglycemic accelerations and dehydration and has since then improved clinically and metabolically as noted thereof. He was previously only on oral hypoglycemic therapy as given. His glycemic levels today have ranged from 189-216 and 246 mg/dL. LABORATORY DATA: His chemistry showed a BUN of 7, sodium 138, potassium 3.5, chloride 105, CO2 of 20, glucose 177, and creatinine 0.6. His hemoglobin A1c is 12.7%, which is quite elevated and indicative of suboptimal metabolic control of his diabetic condition even prior to this admission. ASSESSMENT: This is a 23-year-old male with uncontrolled and decompensated type 2 insulin-requiring diabetes with marked hyperglycemic accelerations and clearly insulin-requiring at this time. PLAN OF MANAGEMENT: We will continue the modified basal and bolus insulin regimen as given with Humalog given as 12 units t.i.d. before meals as ordered. We will continue the basal insulin given as Levemir at 24 units subcutaneously at bedtime daily as given. He will follow up with his medical doctor for outpatient and ongoing medical and diabetic management as noted. We will follow and advise accordingly. Verona Galvez MD
--- NOTE | 2018-07-06 03:20 | DS ---
DISCHARGE SUMMARY: The patient has now been transferred out of the ICU to 569, bed 2. Overnight nurse's notes were reviewed. No adverse events were documented or notified. The patient was maintained on basal and sliding scale insulin and the pre-meal insulin. The patient's blood sugar was monitored, the patient's fingerstick blood sugar 189, 157, 216, 187. PHYSICAL EXAMINATION VITAL SIGNS: T-max 98.2, heart rate 80, blood pressure 126/81, respiration 20, O2 sat 97%. HEENT: The patient's head examination; normocephalic, atraumatic. HEENT examination shows pink conjunctivae. Anicteric sclerae. No oropharyngeal lesion. NECK: No neck rigidity. CHEST: Kyphosis. LUNGS: Shows no audible crackle, rales or wheezing. CARDIOVASCULAR: S1, S2, regular rhythm. ABDOMEN: Soft. Positive bowel sounds. No palpable hepatosplenomegaly. GENITALIA: Male. RECTAL: Deferred. EXTREMITIES: Shows no pitting edema, no calf tenderness, no Homans' sign. NEUROLOGIC: The patient is alert, awake, oriented x3, he is able to move upper and lower extremity without assistance. Gait examination is not tested. Cranial nerves II to XII intact and limited. VASCULAR: Palpable pulses. DIAGNOSTICS: Fingerstick blood sugar 189, 157, 216, 187. WBC 5.3, hemoglobin and hematocrit 12.1 and 36.3, platelet 114. Sodium 138, potassium 3.5, chloride 105, CO2 of 20, BUN 7, creatinine 0.6, glucose 177, calcium 9, phosphorus 3.5, magnesium 1.6. LFTs are within normal limit. FINAL IMPRESSION 1. Status post diabetic ketoacidosis. 2. Uncontrolled type 2 new onset diabetes mellitus with hyperglycemia and diabetic ketoacidosis and hemoglobin A1c of 12.7 and hyper-fructosemia. 3. Hypercholesterolemia. 4. Hypovitaminosis D. 5. Hypokalemia. 6. Hypomagnesemia. 7. Mild borderline anemia and thrombocytopenia. 8. Status post diabetic ketoacidosis (resolved). 9. Family history of diabetes. PLAN: At this time the patient does not wish to take insulin and wishes to resume his metformin, which was prescribed to him recently. The patient's case was referred for school vocational educator evaluation. The patient was seen by Endocrinology, their recommendations were reviewed. As mentioned above, the patient prefers to take tablets for his diabetes and does not wish to take insulin due to personal reasons. The patient will be considered for discharge. The patient will be given potassium supplementation prior to discharge and magnesium sulfate supplementation prior to discharge. The patient will be discharged home. The patient is advised to follow up with Dr. Robledo within 1 week. The patient was advised to follow up with medical transcription supervisor within 1 to 2 weeks. The patient is also advised outpatient podiatry and ophthalmology followup. The patient has been given magnesium sulfate riders x2. The patient has been given p.o. and IV potassium supplementation. DISCHARGE MEDICATIONS: The patient will be discharged home on metformin 1000 mg twice a day, Lipitor 40 mg daily, Drisdol 50,000 units weekly. During this hospitalization, the patient was extensively explained about the details of his medical condition, diagnosis, test results, recommendations by all the physicians involved in the care of the patient was explained to the patient at length and all questions concerned answered, which he acknowledged understood. The patient was advised and was explained extensively about the consequences and complications of uncontrolled diabetes including blindness, renal failure, kidney failure, loss of limb, amputation, loss of most of the vital organ functions, which he acknowledged and understands. Time spent in the discharge process, 45 minutes. Dictated and electronically signed, not read. Sixto Robledo MD
== END 2018-07-05 14:23 | disposition home or self-care (01) | DRG 639 ==
LOC: ED 00:21 → ERH 02:25 → ICU 03:06 → 5RNO 19:56
PROVIDERS: ADMIT Internal Medicine; ATTEND Internal Medicine
DX: E11.10 Type 2 diabetes mellitus with ketoacidosis without coma (principal); R35.8 Other polyuria; R63.1 Polydipsia; E87.6 Hypokalemia; E86.0 Dehydration; E78.5 Hyperlipidemia, unspecified; Z91.14 Patient's other noncompliance with medication regimen; E78.00 Pure hypercholesterolemia, unspecified; E55.9 Vitamin D deficiency, unspecified; D64.9 Anemia, unspecified; Z83.3 Family history of diabetes mellitus